=== PATIENT | female | born 1955 | race Caucasian/White ===

== ENCOUNTER 2018-01-01 12:53 | Inpatient (IN) | payer OTHER ==
[2018-01-01] MEDS ORDERED: Acetaminophen 325 MG Tab PO PRN (14:41)
--- NOTE | 2018-01-01 14:41 | PCM.HP ---
H&P History of Present Illness - General Date of Service: 01/01/18 Admit Problem/Dx: Ms. 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 She is also s/p adjuvant radiation therapy in [place] with her last treatment being 08/16/17. She is currently on adjuvant chemotherapy with Lomustine, Procarbazine and Vincristine which was started on 09/17/17. She admitted to [facility] 12/14/17 from the ER with failure to thrive, dehydration, nausea and vomiting. CXR on 12/14/[address] brain was negative for mass effect, hemorrhage. Prior surgical area noted. She had a feeding tube placed on 12/23/17. Patient was discharge today to [facility] to continue PT/OT for strengthening. At bedside evaluation she denies any compiant. No fever, chills, abdominal pain , neausea and vomting. She was able to eat a little today. Her overall goal is to get off tube feeding and get stronger. She has no pain to the GJ tube site. Source of Information: Patient History Limitations: Reports: No Limitations - History of Present Illness Onset of Symptoms: Reports: Gradual Duration of Symptoms: Reports: Week(s):, Chronic, Improving Improves with: Reports: None Worsens with: Reports: None Associated Symptoms: Reports: No Other Symptoms - Related Data Allergies/Adverse Reactions: Allergies Allergy/AdvReac Type Severity Reaction Status Date / Time No Known Allergies Allergy Verified 01/01/18 11:25 Home Medications: Home Meds Acetaminophen 650 mg PO Q6H PRN 01/01/18 [History] Latanoprost 1 drop EYEBOTH BEDTIME 01/01/18 [History] Ondansetron [Zofran Odt] 8 mg PO Q8H PRN 01/01/18 [History] Rosuvastatin [Crestor] 20 mg PO BEDTIME 01/01/18 [History] Past Medical History HEENT History: Reports: Glaucoma Cardiovascular History: Reports: Hypertension, Other (See Below) Other Cardiovascular History: Hyperlipidemia Gastrointestinal History: Reports: Other (See Below) Other Gastrointestinal History: gallbladder calculus without cholecystitis Genitourinary History: Reports: Urinary Incontinence Musculoskeletal History: Reports: Arthritis, Other (See Below) Other Musculoskeletal History: trigger thumb of right hand Neurological History: Reports: Other (See Below) Other Neuro History: Brain tumor Endocrine/Metabolic History: Reports: Diabetes, Type II Hematologic History: Reports: Blood Transfusion(s) Immunologic History: Reports: Immunosuppression Oncologic (Cancer) History: Reports: Brain - Past Surgical History Head Surgeries/Procedures: Reports: Other (See Below) HEENT Surgical History: Reports: Adenoidectomy, Tonsillectomy, Other (See Below) Other HEENT Surgeries/Procedures: wisdom teeth extraction Cardiovascular Surgical History: Reports: None GI Surgical History: Reports: Colonoscopy, Other (See Below) Other GI Surgeries/Procedures: G-tube placed 12/23/17 Female Surgical History: Reports: Tubal Ligation, Other (See Below) Other Female Surgeries/Procedures: left breast lumpectomy Endocrine Surgical History: Reports: None Neurological Surgical History: Reports: Other (See Below) Other Neurological Surgeries/Procedures: 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) Musculoskeletal Surgical History: Reports: None Oncologic Surgical History: Reports: Other (See Below) Other Oncologic Surgeries/Procedures: brain surgery to remove Oligodendroglioma( brain tumor) Social & Family History - Family History Family Medical History: Noncontributory - Tobacco Use Smoking Status *Q: Former Smoker Years of Tobacco use: 33 Used Tobacco, but Quit: Yes Month/Year Tobacco Last Used: 2000 - Caffeine Use Caffeine Use: Reports: Coffee, Soda, Tea - Recreational Drug Use Recreational Drug Use: No H&P Review of Systems - Review of Systems: Review Of Systems: See Below General: Reports: No Symptoms HEENT: Reports: No Symptoms Pulmonary: Reports: No Symptoms Cardiovascular: Reports: No Symptoms Gastrointestinal: Reports: No Symptoms Genitourinary: Reports: No Symptoms Musculoskeletal: Reports: No Symptoms Skin: Reports: No Symptoms Psychiatric: Reports: No Symptoms Neurological: Reports: No Symptoms Hematologic/Lymphatic: Reports: No Symptoms Immunologic: Reports: No Symptoms Exam - Exam Exam: See Below - Vital Signs Vital Signs: Last Vital Signs Temp 97.7 F 01/01/18 13:19 Pulse 103 H 01/01/18 13:19 Resp 20 01/01/18 13:19 BP 147/90 H 01/01/18 13:19 Pulse Ox 98 01/01/18 13:19 Weight: 124 lb - Exam Quality Assessment: DVT Prophylaxis General: Alert, Oriented, 4 HEENT: PERRLA, Hearing Intact, Mucosa Moist & [place], Nares Patent, Normal Nasal Septum, Posterior Pharynx Clear, Conjunctiva Clear, EOMI, EACs Clear, TMs Clear Neck: Supple, Trachea Midline, 2 Lungs: Clear to Auscultation, Normal Respiratory Effort Cardiovascular: Regular Rate, Regular Rhythm GI/Abdominal Exam: Normal Bowel Sounds, Soft, Non-Tender, No Organomegaly, No Distention, No Abnormal Bruit, No Mass, Pelvis Stable, Abnormal Bowel Sounds, Other (GJ tube noted. No sign of infection) (Female) Exam: Normal External Exam (GJ tube noted, no site of infection.), Normal Speculum Exam, Normal Bimanual Exam Rectal (Female) Exam: Normal Exam, Normal Rectal Tone Back Exam: Normal Inspection, Full Range of Motion, NT Extremities: Normal Inspection, Normal Range of Motion, Non-Tender, No Pedal Edema, Normal Capillary Refill Skin: Warm, Dry, Intact Neurological: Cranial Nerves Intact, Reflexes Equal Bilateral Neuro Extensive - Mental Status: Alert, Oriented x3, Normal Mood/Affect, Normal Cognition Neuro Extensive - Motor, Sensory, Reflexes: CN II-XII Intact, Normal Gait, Normal Reflexes Psychiatric: Alert, Normal Affect, Normal Mood - Problem List (1) Weakness generalized SNOMED Code(s): 29888036 ICD Code: R53.1 - WEAKNESS Status: Acute Current Visit: Yes (2) Adult failure to thrive SNOMED Code(s): 740295414 ICD Code: R62.7 - ADULT FAILURE TO THRIVE Status: Acute Current Visit: Yes (3) Nausea & vomiting SNOMED Code(s): 46610835 ICD Code: R11.2 - NAUSEA WITH VOMITING, UNSPECIFIED Status: Acute Current Visit: Yes Problem List Initiated/Reviewed/Updated: Yes Assessment/Plan Comment:: Adult failure to thrive -continue tube feeding Nausea/vomiting -zofran prn Anorexia/weight loss -tube feeding and encirgae oral feeding Depression -Continue Lexapro 10 mg PO daily Generalized weakness -PT/OT Code status DNI
[2018-01-01] MEDS ORDERED: Ondansetron 4 MG Tab.DIS PO PRN (14:50)
[2018-01-01] MEDS ORDERED: Loperamide 2 MG Cap PO PRN (14:52)
[2018-01-01] MEDS: Potassium Chloride 10% 20 MEQ/15 ML Soln 15 ML UD Cup PO SCH (17:36)
[2018-01-01] MEDS: Rosuvastatin 10 MG Tab PO SCH (20:59)
[2018-01-01] MEDS: Latanoprost 0.005% Ophth Soln 2.5 ML Bottle EYEBOTH SCH (21:00)
[2018-01-01] MEDS: Heparin Sodium 5,000 Units/ML Vial SUBCUT SCH (21:01)
[2018-01-02] MEDS: Potassium Chloride 10% 20 MEQ/15 ML Soln 15 ML UD Cup PO SCH ×2 (10:51→12:29)
[2018-01-02] MEDS: Heparin Sodium 5,000 Units/ML Vial SUBCUT SCH ×2 (10:51→20:57)
[2018-01-02] MEDS: Escitalopram 10 MG Tab PO SCH (10:51)
[2018-01-02] MEDS: Potassium Chloride 10 MEQ Tab.ER PO SCH (17:49)
[2018-01-02] MEDS: Rosuvastatin 10 MG Tab PO SCH (20:57)
[2018-01-02] MEDS: Latanoprost 0.005% Ophth Soln 2.5 ML Bottle EYEBOTH SCH (21:00)
[2018-01-03 06:33] LABS: ANION GAP 9.7; CHLORIDE,CL 103 mmol/L (101-111); SODIUM,NA 135 mmol/L (135-145)
[2018-01-03] MEDS: Potassium Chloride 10 MEQ Tab.ER PO SCH ×2 (09:55→12:52)
[2018-01-03] MEDS: Heparin Sodium 5,000 Units/ML Vial SUBCUT SCH (09:55)
[2018-01-03] MEDS: Escitalopram 10 MG Tab PO SCH (09:56)
--- NOTE | 2018-01-03 09:57 | PCM.DCSUM1 ---
Discharge Summary - Hospital Course Free Text/Narrative:: Ms. 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 She is also s/p adjuvant radiation therapy in [place] with her last treatment being 08/16/17. She is currently on adjuvant chemotherapy with Lomustine, Procarbazine and Vincristine which was started on 09/17/17. She admitted to [facility] 12/14/17 from the ER with failure to thrive, dehydration, nausea and vomiting. CXR on 12/14/[address] brain was negative for mass effect, hemorrhage. Prior surgical area noted. She had a feeding tube placed on 12/23/17. Patient was discharge on 01/01 to [facility] to continue PT/OT for strengthening. At bedside evaluation she denies any compiant. No fever, chills, abdominal pain , neausea and vomting. She was able to eat a little today but vomited more than half of she eat. Her Gj tube clogged on 01/02/17 and was seen by surgery yesterday but at [place] has no replacement material available, not transferred yesterday with thought that she will able to eat and will not need GJ tube replacement but she did not anything last night and this AM she eat her part of the breakfast but vomited more that 50% of what she eat. [facility]. I talk to On-Call and Dr. Mccord has accepted her. She will be a direct admit and her will take her to [facility] - Discharge Data Discharge Date: 01/03/18 Discharge Disposition: Home, Self-Care 01 Condition: Good - Patient Summary/Data Consults: Consultations 01/01/18 14:48 OT Evaluation and Treatment [CONS] Routine PT Evaluation and Treatment [CONS] Routine - Patient Instructions Diet: NPO Driving: Do Not Drive - Discharge Plan *PRESCRIPTION DRUG MONITORING PROGRAM REVIEWED*: Not Applicable *COPY OF PRESCRIPTION DRUG MONITORING REPORT IN PATIENT REYNA: Not Applicable Home Medications: Home Meds Acetaminophen 650 mg PO Q6H PRN 01/01/18 [History] Latanoprost 1 drop EYEBOTH BEDTIME 01/01/18 [History] Ondansetron [Zofran Odt] 8 mg PO Q8H PRN 01/01/18 [History] Rosuvastatin [Crestor] 20 mg PO BEDTIME 01/01/18 [History] - Discharge Summary/Plan Comment DC Time >30 min.: Yes Discharge Summary/Plan Comment: Ms. 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 She is also s/p adjuvant radiation therapy in [place] with her last treatment being 08/16/17. She is currently on adjuvant chemotherapy with Lomustine, Procarbazine and Vincristine which was started on 09/17/17. [facility] ER with failure to thrive, dehydration, nausea and vomiting. CXR on 12/14/[address] brain was negative for mass effect, hemorrhage. Prior surgical area noted. She had a feeding tube placed on 12/23/17. Patient was discharge on 01/01 to [facility] to continue PT/OT for strengthening. At bedside evaluation she denies any compiant. No fever, chills, abdominal pain , neausea and vomting. She was able to eat a little today but vomited more than half of she eat. Her Gj tube clogged on 01/02/17 and was seen by surgery yesterday but at [place] has no replacement material available, not transferred yesterday with thought that she will able to eat and will not need GJ tube replacement but she did not anything last night and this AM she eat her part of the breakfast but vomited more that 50% of what she eat. [facility]. I talk to On-Call and Dr. Mccord has accepted her. She will be a direct admit and her will take her to [facility] Impression and Plan: Adult failure to thrive -Will need to continue tube feeding, GHJ tube is clogged and can not replace at [place], she will be transferred to [facility] for replacemnt of GJ tube Nausea/vomiting -Continue zofran prn Anorexia/weight loss -Continue tube feeding and advance oral feeding as tolerated Depression -Continue Lexapro 10 mg PO daily Generalized weakness -PT/OT Code status: DNR/DNI - General Info Date of Service: 01/03/18 Admission Dx/Problem (Free Text: Pt was admitted as Tranfer to swing bed for PT/OT and strengthning Subjective Update: pt was seen in room, talking but can not remember , provides most of the information, very pleasant lady, Not in distress, No nausea or vomiting, has no fever or Chill Functional Status: Reports: Pain Controlled, Tolerating Diet (on tube feeding, has minimal oral intake), Ambulating, Urinating - Review of Systems General: Reports: Weakness, Appetite (on tube feeding, oral intake is limited). Denies: Fever, Chills HEENT: Denies: Headaches, Sinus Congestion, Sore Throat, Visual Changes Pulmonary: Denies: Shortness of Breath, Pleuritic Chest Pain, Cough, Sputum, Wheezing Cardiovascular: Denies: Chest Pain, Palpitations, Dyspnea on Exertion, Lightheadedness Gastrointestinal: Reports: Vomiting. Denies: Abdominal Pain, Diarrhea, Nausea Genitourinary: Denies: Dysuria, Burning, Urgency, Flank Pain Musculoskeletal: Denies: Neck Pain, Shoulder Pain, Joint Swelling Skin: Denies: Jaundice, Bruising, Pruritis, Rash Neurological: Denies: Confusion, Paresthesia, Tingling Psychiatric: Denies: Confusion, Anxiety - Patient Data Vitals - Most Recent: Last Vital Signs Temp 36.6 C 01/03/18 08:00 Pulse 93 01/03/18 08:00 Resp 18 01/03/18 08:00 BP 136/80 01/03/18 08:00 Pulse Ox 95 01/03/18 08:00 Weight - Most Recent: 56.245 kg I&O - Last 24 hours: Intake & Output 01/02/18 01/03/18 01/03/18 22:59 06:59 14:59 Intake Total 525 50 Output Total 575 600 Balance -50 -550 Lab Results - Last 24 hrs: Laboratory Results - last 24 hr 01/02/18 01/03/18 01/03/18 Range/Units 17:02 05:55 05:55 WBC 2.9 L (5.0-10.0) 10^3/uL RBC 3.28 L (4.2-5.4) 10^6/uL Hgb 9.6 L (12.0-16.0) g/dL Hct 29.5 L (37.0-47.0) % MCV 89.9 (80-100) fL MCH 29.3 (27.0-34.0) pg MCHC 32.5 L (33.0-35.0) g/dL Plt Count 170 (150-450) 10^3/uL Neut % (Auto) 60.1 (42.2-75.2) % Lymph % (Auto) 14.2 L (20.5-50.1) % Sanders % (Auto) 24.7 H (2-8) % Eos % (Auto) 0.3 L (1.0-3.0) % Baso % (Auto) 0.7 (0.0-1.0) % Add Manual Diff Yes Neutrophils % (Manual) 59 (42-75) % Band Neutrophils % 8 % Lymphocytes % (Manual) 12 L (20-50) % Monocytes % (Manual) 20 H (2-8) % Basophils % (Manual) 1 Nucleated RBCs 3 /100WBC Toxic Granulation 1+ slight Poikilocytosis 1+ slight Sodium 135 (135-145) mmol/L Potassium 3.7 (3.6-5.0) mmol/L Chloride 103 (101-111) mmol/L Carbon Dioxide 26.0 (21.0-31.0) mmol/L Anion Gap 9.7 BUN 13 (7-18) mg/dL Creatinine 0.5 L (0.6-1.3) mg/dL Est Cr Clr Drug Dosing 98.16 mL/min Estimated GFR (MDRD) > 60 Glucose 100 (74-105) mg/dL POC Glucose 101 (70-105) mg/dl Calcium 9.1 (8.4-10.2) mg/dl 01/03/18 Range/Units 07:54 WBC (5.0-10.0) 10^3/uL RBC (4.2-5.4) 10^6/uL Hgb (12.0-16.0) g/dL Hct (37.0-47.0) % MCV (80-100) fL MCH (27.0-34.0) pg MCHC (33.0-35.0) g/dL Plt Count (150-450) 10^3/uL Neut % (Auto) (42.2-75.2) % Lymph % (Auto) (20.5-50.1) % Sanders % (Auto) (2-8) % Eos % (Auto) (1.0-3.0) % Baso % (Auto) (0.0-1.0) % Add Manual Diff Neutrophils % (Manual) (42-75) % Band Neutrophils % % Lymphocytes % (Manual) (20-50) % Monocytes % (Manual) (2-8) % Basophils % (Manual) Nucleated RBCs /100WBC Toxic Granulation Poikilocytosis Sodium (135-145) mmol/L Potassium (3.6-5.0) mmol/L Chloride (101-111) mmol/L Carbon Dioxide (21.0-31.0) mmol/L Anion Gap BUN (7-18) mg/dL Creatinine (0.6-1.3) mg/dL Est Cr Clr Drug Dosing mL/min Estimated GFR (MDRD) Glucose (74-105) mg/dL POC Glucose 100 (70-105) mg/dl Calcium (8.4-10.2) mg/dl Med Orders - Current: Current Medications Acetaminophen (Tylenol) 650 mg PO Q4H PRN PRN Reason: Pain (mild 1-3 )/fever Escitalopram Oxalate (Lexapro) 10 mg PO DAILY [facility] Last Admin: 01/02/18 10:51 Dose: 10 mg Heparin Sodium (Porcine) (Heparin Sodium) 5,000 units SUBCUT Q12HR [facility] Last Admin: 01/02/18 20:57 Dose: 5,000 units Latanoprost (Xalatan 0.005% Ophth Soln) 0 ml EYEBOTH BEDTIME [facility] Last Admin: 01/02/18 21:00 Dose: 1 drop Loperamide HCl (Imodium) 4 mg PO Q6H PRN PRN Reason: Diarrhea Ondansetron HCl (Zofran Odt) 8 mg PO Q8H PRN PRN Reason: Nausea Potassium Chloride (Klor-Con 10) 30 meq PO TIDMEALS [facility] Last Admin: 01/02/18 17:49 Dose: 30 meq Rosuvastatin Calcium (Crestor) 20 mg PO BEDTIME [facility] Last Admin: 01/02/18 20:57 Dose: 20 mg Discontinued Medications Potassium Chloride (Potassium Chloride Solution) 30 meq PO TIDMEALS [facility] Last Admin: 01/02/18 12:29 Dose: Not Given - Exam Quality Assessment: Reports: DVT Prophylaxis. Denies: Supplemental Oxygen, Urine Catheter General: Reports: Alert, Oriented, Cooperative, No Acute Distress HEENT: Reports: Pupils Equal, Mucous Membr. Moist/[place] Neck: Reports: Supple, No JVD, No Thyromegaly Lungs: Reports: Clear to Auscultation, Normal Respiratory Effort. Denies: Crackles, Wheezing Cardiovascular: Reports: Regular Rate, Regular Rhythm, Murmurs GI/Abdominal Exam: Normal Bowel Sounds, Soft, Non-Tender. No: Guarding, Rigid, Rebound, Tender (Female) Exam: Deferred Rectal (Female) Exam: Deferred Back Exam: Reports: Normal Inspection, Full Range of Motion Extremities: Normal Inspection, No Pedal Edema Skin: Reports: Warm, Dry, Intact Neurological: Reports: No New Focal Deficit Psy/Mental Status: Reports: Alert, Normal Affect, Normal Mood
== END 2018-01-03 12:00 | DRG 948 ==
LOC: UNDOADMIN 12:56 → DL.MS 12:56
PROVIDERS: ADMIT Student in an Organized Health Care Education/Training Program; ATTEND Student in an Organized Health Care Education/Training Program
DX: R53.1 Weakness (principal); C71.9 Malignant neoplasm of brain, unspecified; K94.23 Gastrostomy malfunction; Y83.8 Other surgical procedures as the cause of abnormal reaction of the patient, or of later complication, without mention of misadventure at the time of the procedure; Y92.230 Patient room in hospital as the place of occurrence of the external cause; R62.7 Adult failure to thrive; E11.9 Type 2 diabetes mellitus without complications; E78.5 Hyperlipidemia, unspecified; I10 Essential (primary) hypertension; R11.2 Nausea with vomiting, unspecified; H40.9 Unspecified glaucoma; M19.90 Unspecified osteoarthritis, unspecified site; R32 Unspecified urinary incontinence; F32.9 Major depressive disorder, single episode, unspecified; Z98.890 Other specified postprocedural states; Z92.21 Personal history of antineoplastic chemotherapy; Z92.3 Personal history of irradiation; Z79.899 Other long term (current) drug therapy; Z87.891 Personal history of nicotine dependence
CPT/HCPCS: 36415; 80048; 82962; 85025; 97162-GP; 97165-GO; A9270-GY; J1644

== ENCOUNTER 2018-01-05 13:03 | Inpatient (IN) | payer OTHER ==
[2018-01-05] MEDS ORDERED: Acetaminophen 325 MG Tab PO PRN ×2 (15:37→15:42)
--- NOTE | 2018-01-05 15:55 | PCM.HP ---
H&P History of Present Illness - General Date of Service: 01/05/18 Admit Problem/Dx: Admission Diagnosis/Problem Admission Diagnosis/Problem Weakness Source of Information: Patient History Limitations: Reports: No Limitations - History of Present Illness Initial Comments - Free Text/Narative: Jorge preciado 62 y.o.femalewith PMH of HTN and DM2 not on medications, hyperlipidemia, oligodendroglioma s/p resection and XRT, s/p adjuvant radiation therapy in [place] with her last treatment on 08/16/17. She is currently on adjuvant chemotherapy with Lomustine, Procarbazine and Vincristine which was started on 09/17/17. Last session about 6weeks ago. She was recently discharged to our swing bed after prolonged hospitalization for FTT, GJ tube placement, weakness, pancytopenia. Her GJ tube was not functioning at swing bed so was transferred back to [facility]. The tube was flushed, then aspirated - pill fragments were found and now function well. She was discharged back to our swing bed to continue PT/OT. At the time of this evaluation patient reports no problem. She no abdominal pain , nausea, vomiting. Onset of Symptoms: Reports: Gradual Duration of Symptoms: Reports: Week(s): Location: Reports: Abdomen, Generalized Improves with: Reports: None Worsens with: Reports: None Associated Symptoms: Reports: No Other Symptoms - Related Data Allergies/Adverse Reactions: Allergies Allergy/AdvReac Type Severity Reaction Status Date / Time No Known Allergies Allergy Verified 01/05/18 14:54 Home Medications: Home Meds Acetaminophen 650 mg PO Q6H PRN 01/01/18 [History] Latanoprost 1 drop EYEBOTH BEDTIME 01/01/18 [History] Ondansetron [Zofran Odt] 8 mg PO Q8H PRN 01/01/18 [History] Rosuvastatin [Crestor] 20 mg PO BEDTIME 01/01/18 [History] Escitalopram [Lexapro] 10 mg PO DAILY 01/05/18 [History] Potassium Chloride [Potassium Chloride Solution] 30 ml GTUBE TID 01/05/18 [ History] Past Medical History HEENT History: Reports: Glaucoma Cardiovascular History: Reports: Hypertension, Other (See Below) Other Cardiovascular History: Hyperlipidemia Gastrointestinal History: Reports: Other (See Below) Other Gastrointestinal History: gallbladder calculus without cholecystitis Genitourinary History: Reports: Urinary Incontinence Musculoskeletal History: Reports: Arthritis, Other (See Below) Other Musculoskeletal History: trigger thumb of right hand Neurological History: Reports: Other (See Below) Other Neuro History: Brain tumor Endocrine/Metabolic History: Reports: Diabetes, Type II Hematologic History: Reports: Blood Transfusion(s) Immunologic History: Reports: Immunosuppression Oncologic (Cancer) History: Reports: Brain - Past Surgical History Head Surgeries/Procedures: Reports: Other (See Below) HEENT Surgical History: Reports: Adenoidectomy, Tonsillectomy, Other (See Below) Other HEENT Surgeries/Procedures: wisdom teeth extraction Cardiovascular Surgical History: Reports: None GI Surgical History: Reports: Colonoscopy, Other (See Below) Other GI Surgeries/Procedures: G-tube placed 12/23/17 Female Surgical History: Reports: Tubal Ligation, Other (See Below) Other Female Surgeries/Procedures: left breast lumpectomy Endocrine Surgical History: Reports: None Neurological Surgical History: Reports: Other (See Below) Other Neurological Surgeries/Procedures: 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) Musculoskeletal Surgical History: Reports: None Oncologic Surgical History: Reports: Other (See Below) Other Oncologic Surgeries/Procedures: brain surgery to remove Oligodendroglioma( brain tumor) Social & Family History - Family History Family Medical History: Noncontributory - Tobacco Use Smoking Status *Q: Former Smoker Years of Tobacco use: 33 Packs/Tins Daily: 2 Used Tobacco, but Quit: Yes Month/Year Tobacco Last Used: june - Caffeine Use Caffeine Use: Reports: Coffee, Soda, Tea - Recreational Drug Use Recreational Drug Use: No H&P Review of Systems - Review of Systems: Review Of Systems: See Below General: Reports: No Symptoms, Weakness, Decreased Appetite, Weight Loss HEENT: Reports: No Symptoms Pulmonary: Reports: No Symptoms Cardiovascular: Reports: No Symptoms Gastrointestinal: Reports: Abdominal Pain, Anorexia, Nausea, Vomiting Genitourinary: Reports: No Symptoms Musculoskeletal: Reports: No Symptoms Skin: Reports: No Symptoms Psychiatric: Reports: No Symptoms Neurological: Reports: No Symptoms Hematologic/Lymphatic: Reports: No Symptoms Immunologic: Reports: No Symptoms Exam - Exam Exam: See Below - Vital Signs Vital Signs: Last Vital Signs Temp 97.4 F 01/05/18 13:20 Pulse 96 01/05/18 13:20 Resp 20 01/05/18 13:20 BP 149/89 H 01/05/18 13:20 Pulse Ox 98 01/05/18 13:20 Weight: 121 lb 9.6 oz - Exam Quality Assessment: DVT Prophylaxis General: Alert, Oriented, 4 HEENT: PERRLA, Hearing Intact, Mucosa Moist & [place], Nares Patent, Normal Nasal Septum, Posterior Pharynx Clear, Conjunctiva Clear, EOMI, EACs Clear, TMs Clear Neck: Supple, Trachea Midline, 2 Lungs: Clear to Auscultation, Normal Respiratory Effort Cardiovascular: Regular Rate, Regular Rhythm GI/Abdominal Exam: Normal Bowel Sounds, Soft, Non-Tender, No Organomegaly, No Distention, No Abnormal Bruit, No Mass, Pelvis Stable, Other (GJ tube in place) (Female) Exam: Normal External Exam, Normal Speculum Exam, Normal Bimanual Exam Rectal (Female) Exam: Normal Exam, Normal Rectal Tone Back Exam: Normal Inspection, Full Range of Motion, NT Extremities: Normal Inspection, Normal Range of Motion, Non-Tender, No Pedal Edema, Normal Capillary Refill Skin: Warm, Dry, Intact Neurological: Cranial Nerves Intact, Reflexes Equal Bilateral Neuro Extensive - Mental Status: Alert, Oriented x3, Normal Mood/Affect, Normal Cognition Neuro Extensive - Motor, Sensory, Reflexes: CN II-XII Intact, Normal Gait, Normal Reflexes Psychiatric: Alert, Normal Affect, Normal Mood - Problem List (1) Adult failure to thrive SNOMED Code(s): 629654902 ICD Code: R62.7 - ADULT FAILURE TO THRIVE Status: Acute Current Visit: No (2) Nausea & vomiting SNOMED Code(s): 63937581 ICD Code: R11.2 - NAUSEA WITH VOMITING, UNSPECIFIED Status: Acute Current Visit: No (3) Weakness generalized SNOMED Code(s): 92519015 ICD Code: R53.1 - WEAKNESS Status: Acute Current Visit: No Problem List Initiated/Reviewed/Updated: Yes Orders Last 24hrs: Active Orders 24 hr Category Date Time Status Patient Status [ADT] Routine ADT 01/05/18 15:37 Ordered Antiembolic Devices [RC] .Routine Care 01/05/18 15:39 Ordered Intake and Output [RC] QSHIFT Care 01/05/18 15:39 Ordered Up With Assistance [RC] ASDIRECTED Care 01/05/18 15:37 Ordered Vital Signs [RC] Q4H Care 01/05/18 15:37 Ordered OT Evaluation and Treatment [CONS] Routine Cons 01/05/18 15:48 Ordered PT Evaluation and Treatment [CONS] Routine Cons 01/05/18 15:47 Ordered Regular Diet [DIET] Diet 01/05/18 Dinner Active Tube Feeding Adult Diet [DIET] Diet 01/05/18 Dinner Ordered Acetaminophen [Tylenol] Med 01/05/18 15:37 Ordered 650 mg PO Q4H PRN Acetaminophen [Tylenol] Med 01/05/18 15:42 Ordered 650 mg PO Q6H PRN Escitalopram [Lexapro] Med 01/06/18 09:00 Ordered 10 mg PO DAILY Heparin Sodium Med 01/05/18 15:45 Ordered 5,000 units SUBCUT Q12H Latanoprost [Xalatan 0.005% Ophth Soln] Med 01/05/18 21:00 Ordered 1 drop EYEBOTH BEDTIME Ondansetron Med 01/05/18 15:42 Ordered 8 mg PO Q8H PRN Potassium Chloride [Potassium Chloride Solution] Med 01/05/18 21:00 Ordered 40 meq GTUBE TID Rosuvastatin [Crestor] Med 01/05/18 21:00 Ordered 20 mg PO BEDTIME DVT/VTE Prophylaxis Reflex [OM.PC] Routine Oth 01/05/18 15:37 Ordered Medication Orders Acetaminophen (Tylenol) 650 mg PO Q4H PRN PRN Reason: Pain (mild 1-3 )/fever Acetaminophen (Tylenol) 650 mg PO Q6H PRN PRN Reason: Pain (mild 1-3) Escitalopram Oxalate (Lexapro) 10 mg PO DAILY [facility] Heparin Sodium (Porcine) (Heparin Sodium) 5,000 units SUBCUT Q12H [facility] Latanoprost (Xalatan 0.005% Ophth Soln) ml EYEBOTH BEDTIME [facility] Non-Formulary Medication (Ondansetron) 8 mg PO Q8H PRN PRN Reason: Nausea Potassium Chloride (Potassium Chloride Solution) 40 meq GTUBE TID [facility] Rosuvastatin Calcium (Crestor) 20 mg PO BEDTIME [facility] Assessment/Plan Comment:: Adult failure to thrive, poor appetite, generalized weakness -Patient encouraged to eat as tolerated, she is eating a little better now -nutrition, supplements -PT/OT Nausea/vomiting -Zofran and reglan as needed -improved G-J tube -strictly for tube feeding -do not use tube for pills, only tube feeds and liquid meds - pt is able to take her pills po Acute on chronic anemia -stable Wt loss and severe malnutrtion -50 Ib wt loss in past 7mo -continue marinol, ensure -s/p GJ tube placement 12/23 - has beentolerating jejunal tube feeds Oligodendroglioma -follows with Dr Price HLD -cont statin Hypokalemia -cont 40meq tid HTN -BP at goal -Continue current care -MonitoredBP closely PROPHYLAXIS: heparin DIET: general + tube feed CODE: DNR
[2018-01-05] MEDS: Rosuvastatin 10 MG Tab PO SCH (20:55)
[2018-01-05] MEDS: Potassium Chloride 10% 20 MEQ/15 ML Soln 15 ML UD Cup GTUBE SCH (20:56)
[2018-01-05] MEDS: Heparin Sodium 5,000 Units/ML Vial SUBCUT SCH (20:56)
[2018-01-05] MEDS: Latanoprost 0.005% Ophth Soln 2.5 ML Bottle EYEBOTH SCH (21:04)
[2018-01-05] MEDS: Ondansetron 4 MG Tab.DIS PO PRN (22:25)
[2018-01-06] MEDS: Potassium Chloride 10% 20 MEQ/15 ML Soln 15 ML UD Cup GTUBE SCH ×3 (08:50→21:45)
[2018-01-06] MEDS: Escitalopram 10 MG Tab PO SCH (08:50)
[2018-01-06] MEDS: Heparin Sodium 5,000 Units/ML Vial SUBCUT SCH ×2 (08:51→21:33)
[2018-01-06] MEDS: Ondansetron 4 MG Tab.DIS PO PRN (19:33)
[2018-01-06] MEDS: Rosuvastatin 10 MG Tab PO SCH (21:32)
[2018-01-06] MEDS: Latanoprost 0.005% Ophth Soln 2.5 ML Bottle EYEBOTH SCH (21:35)
[2018-01-07] MEDS: Heparin Sodium 5,000 Units/ML Vial SUBCUT SCH ×2 (09:25→22:01)
[2018-01-07] MEDS: Potassium Chloride 10% 20 MEQ/15 ML Soln 15 ML UD Cup GTUBE SCH ×2 (09:26→15:25)
[2018-01-07] MEDS: Escitalopram 10 MG Tab PO SCH (09:26)
[2018-01-07] MEDS: Ondansetron 4 MG Tab.DIS PO SCH ×2 (11:20→17:37)
[2018-01-07] MEDS ORDERED: Ondansetron 4 MG/2 ML SDV IV SCH (14:00)
[2018-01-07] MEDS ORDERED: [UNRECOGNIZED DRUG - REMARK] GTUBE ONE (16:30)
[2018-01-07] MEDS ORDERED: Potassium Chloride 10% 20 MEQ/15 ML Soln 15 ML UD Cup PO SCH (21:00)
[2018-01-07] MEDS: Rosuvastatin 10 MG Tab PO SCH (22:01)
[2018-01-07] MEDS: Potassium Chloride 10 MEQ Tab.ER PO SCH (22:03)
[2018-01-07] MEDS: Latanoprost 0.005% Ophth Soln 2.5 ML Bottle EYEBOTH SCH (22:03)
[2018-01-08] MEDS: Ondansetron 4 MG Tab.DIS PO SCH ×3 (09:29→16:58)
[2018-01-08] MEDS: Potassium Chloride 10 MEQ Tab.ER PO SCH ×3 (09:29→20:18)
[2018-01-08] MEDS: Escitalopram 10 MG Tab PO SCH (09:30)
[2018-01-08] MEDS: Heparin Sodium 5,000 Units/ML Vial SUBCUT SCH ×2 (09:30→20:15)
[2018-01-08] MEDS: Latanoprost 0.005% Ophth Soln 2.5 ML Bottle EYEBOTH SCH (20:17)
[2018-01-08] MEDS: Rosuvastatin 10 MG Tab PO SCH (20:19)
[2018-01-09 06:57] LABS: ANION GAP 13.1; CHLORIDE,CL 104 mmol/L (101-111); SODIUM,NA 136 mmol/L (135-145)
[2018-01-09] MEDS: Ondansetron 4 MG Tab.DIS PO SCH ×3 (09:30→18:14)
[2018-01-09] MEDS: Potassium Chloride 10 MEQ Tab.ER PO SCH ×3 (09:30→21:30)
[2018-01-09] MEDS: Escitalopram 10 MG Tab PO SCH (09:30)
[2018-01-09] MEDS: Heparin Sodium 5,000 Units/ML Vial SUBCUT SCH ×2 (09:30→21:30)
--- NOTE | 2018-01-09 11:13 | PCM.PN ---
- General Info Date of Service: 01/09/18 Admission Dx/Problem (Free Text): Weakness, Subjective Update: Had repeated problem with the feeding tube clogging. On 08 January the feeding to was unclogged by IR in [place]. Tube feeding was restarted at 100 mL per hour. The patient reported abdominal pain and the tube feeding was decreased to 50 mL/h. She tolerated that well - Patient Data Vitals - Most Recent: Last Vital Signs Temp 36.3 C 01/09/18 07:19 Pulse 108 H 01/09/18 07:19 Resp 20 01/09/18 07:19 BP 112/66 01/09/18 07:19 Pulse Ox 94 L 01/09/18 07:19 Weight - Most Recent: 54.975 kg I&O - Last 24 Hours: Intake & Output 01/08/18 01/09/18 01/09/18 22:59 06:59 14:59 Intake Total 453 685 383 Output Total 300 200 Balance 153 485 383 Lab Results Last 24 Hours: Laboratory Results - last 24 hr 01/09/18 01/09/18 01/09/18 Range/Units 06:20 06:20 07:38 WBC 7.0 (5.0-10.0) 10^3/uL RBC 3.45 L (4.2-5.4) 10^6/uL Hgb 10.2 L (12.0-16.0) g/dL Hct 31.9 L (37.0-47.0) % MCV 92.5 (80-100) fL MCH 29.6 (27.0-34.0) pg MCHC 32.0 L (33.0-35.0) g/dL Plt Count 259 D (150-450) 10^3/uL Neut % (Auto) 78.7 H (42.2-75.2) % Lymph % (Auto) 6.2 L (20.5-50.1) % [place] % (Auto) 14.5 H (2-8) % Eos % (Auto) 0.3 L (1.0-3.0) % Baso % (Auto) 0.3 (0.0-1.0) % Sodium 136 (135-145) mmol/L Potassium 4.1 (3.6-5.0) mmol/L Chloride 104 (101-111) mmol/L Carbon Dioxide 23.0 (21.0-31.0) mmol/L Anion Gap 13.1 BUN 18 (7-18) mg/dL Creatinine 0.5 L (0.6-1.3) mg/dL Est Cr Clr Drug Dosing 98.65 mL/min Estimated GFR (MDRD) > 60 Glucose 177 H (74-105) mg/dL POC Glucose 174 H (70-105) mg/dl Calcium 8.9 (8.4-10.2) mg/dl Med Orders - Current: Current Medications Acetaminophen (Tylenol) 650 mg PO Q6H PRN PRN Reason: Pain (mild 1-3) Escitalopram Oxalate (Lexapro) 10 mg PO DAILY [facility] Last Admin: 01/09/18 09:30 Dose: 10 mg Heparin Sodium (Porcine) (Heparin Sodium) 5,000 units SUBCUT Q12HR [facility] Last Admin: 01/09/18 09:30 Dose: 5,000 units Latanoprost (Xalatan 0.005% Ophth Soln) 0 ml EYEBOTH BEDTIME [facility] Last Admin: 01/08/18 20:17 Dose: 1 drop Ondansetron HCl (Zofran Odt) 4 mg PO TIDAC [facility] Last Admin: 01/09/18 09:30 Dose: 4 mg Potassium Chloride (Klor-Con 10) 40 meq PO TID [facility] Last Admin: 01/09/18 09:30 Dose: 40 meq Rosuvastatin Calcium (Crestor) 20 mg PO BEDTIME [facility] Last Admin: 01/08/18 20:19 Dose: 20 mg Discontinued Medications Acetaminophen (Tylenol) 650 mg PO Q4H PRN PRN Reason: Pain (mild 1-3 )/fever Creon And Sodium Bicarb Non-Form Med 1 each GTUBE ONETIME ONE Stop: 01/07/18 16:31 Last Admin: 01/07/18 16:45 Dose: 1 each Ondansetron HCl (Zofran Odt) 8 mg PO Q8H PRN PRN Reason: Nausea Last Admin: 01/06/18 19:33 Dose: 8 mg Ondansetron HCl (Zofran) 4 mg IV Q8HR [facility] Potassium Chloride (Potassium Chloride Solution) 40 meq GTUBE TID [facility] Last Admin: 01/07/18 15:25 Dose: 40 meq Potassium Chloride (Potassium Chloride Solution) 40 meq PO TID [facility] Last Admin: 01/08/18 01:46 Dose: Not Given - Exam General: Alert, Oriented Neck: Supple Lungs: Clear to Auscultation, Normal Respiratory Effort Cardiovascular: Regular Rate, Regular Rhythm GI/Abdominal Exam: Other (Feeding tube) Extremities: No Pedal Edema - Problem List Review Problem List Initiated/Reviewed/Updated: Yes - My Orders Last 24 Hours: My Active Orders 01/08/18 20:12 Enteral Feedings [RC] Click to Edit - Plan Plan:: Jorge preciado 62 y.o.femalewith PMH of HTN and DM2 not on medications, hyperlipidemia, oligodendroglioma s/p resection and XRT, s/p adjuvant radiation therapy in [place] with her last treatment on 08/16/17. She is currently on adjuvant chemotherapy with Lomustine, Procarbazine and Vincristine which was started on 09/17/17. Last session about 6weeks ago. She was recently discharged to our swing bed after prolonged hospitalization for FTT, GJ tube placement, weakness, pancytopenia. Her GJ tube was not functioning at swing bed so was transferred back to [facility]. The tube was flushed, then aspirated - pill fragments were found and now function well. She was discharged back to our swing bed to continue PT/OT. Adult failure to thrive, poor appetite, generalized weakness -Patient encouraged to eat as tolerated, she is eating a little better now We will try to alternate days between tube feeding and oral food intake -nutrition, supplements -PT/OT Nausea/vomiting -Zofran and reglan as needed -improved G-J tube -strictly for tube feeding -do not use tube for pills, only tube feeds and liquid meds - pt is able to take her pills po Flash with fresh water frequently Acute on chronic anemia -stable Wt loss and severe malnutrtion -50 Ib wt loss in past 7mo -s/p GJ tube placement 12/23 Oligodendroglioma -follows with Dr Price HLD -cont statin Hypokalemia -cont 40meq tid HTN -BP at goal -Continue current care -MonitoredBP closely PROPHYLAXIS: heparin DIET: general + tube feed CODE: DNR
[2018-01-09] MEDS: Rosuvastatin 10 MG Tab PO SCH (21:29)
[2018-01-09] MEDS: Latanoprost 0.005% Ophth Soln 2.5 ML Bottle EYEBOTH SCH (21:31)
[2018-01-10] MEDS: Potassium Chloride 10 MEQ Tab.ER PO SCH ×3 (08:23→20:33)
[2018-01-10] MEDS: Ondansetron 4 MG Tab.DIS PO SCH ×3 (08:24→17:27)
[2018-01-10] MEDS: Escitalopram 10 MG Tab PO SCH (08:24)
[2018-01-10] MEDS: Heparin Sodium 5,000 Units/ML Vial SUBCUT SCH ×2 (08:24→20:40)
[2018-01-10] MEDS: Rosuvastatin 10 MG Tab PO SCH (20:33)
[2018-01-10] MEDS: Latanoprost 0.005% Ophth Soln 2.5 ML Bottle EYEBOTH SCH (20:34)
[2018-01-11] MEDS: Ondansetron 4 MG Tab.DIS PO SCH ×3 (07:56→17:39)
[2018-01-11] MEDS: Escitalopram 10 MG Tab PO SCH (08:00)
[2018-01-11] MEDS: Potassium Chloride 10 MEQ Tab.ER PO SCH ×3 (08:00→22:10)
[2018-01-11] MEDS: Heparin Sodium 5,000 Units/ML Vial SUBCUT SCH ×2 (08:00→22:25)
[2018-01-11] MEDS: Latanoprost 0.005% Ophth Soln 2.5 ML Bottle EYEBOTH SCH (22:10)
[2018-01-11] MEDS: Rosuvastatin 10 MG Tab PO SCH (22:10)
[2018-01-12 07:13] LABS: ANION GAP 13.4; CHLORIDE,CL 101 mmol/L (101-111); SODIUM,NA 135 mmol/L (135-145)
[2018-01-12] MEDS: Ondansetron 4 MG Tab.DIS PO SCH ×3 (08:13→17:13)
[2018-01-12] MEDS: Escitalopram 10 MG Tab PO SCH (08:14)
[2018-01-12] MEDS: Potassium Chloride 10 MEQ Tab.ER PO SCH ×3 (08:14→20:03)
[2018-01-12] MEDS: Heparin Sodium 5,000 Units/ML Vial SUBCUT SCH ×2 (08:16→20:02)
[2018-01-12] MEDS: Metoclopramide Oral Soln 10 MG/10 ML UD Cup PO SCH (20:01)
[2018-01-12] MEDS: Rosuvastatin 10 MG Tab PO SCH (20:03)
[2018-01-12] MEDS: Latanoprost 0.005% Ophth Soln 2.5 ML Bottle EYEBOTH SCH (20:05)
[2018-01-13] MEDS: Heparin Sodium 5,000 Units/ML Vial SUBCUT SCH ×2 (08:59→20:32)
[2018-01-13] MEDS: Ondansetron 4 MG Tab.DIS PO SCH ×3 (08:59→17:01)
[2018-01-13] MEDS: Potassium Chloride 10 MEQ Tab.ER PO SCH (09:00)
[2018-01-13] MEDS: Escitalopram 10 MG Tab PO SCH (09:01)
--- NOTE | 2018-01-13 12:28 | PCM.PN ---
- General Info Date of Service: 01/13/18 Admission Dx/Problem (Free Text): Weakness, Subjective Update: Had repeated problem with the feeding tube clogging. Now it appears to be functioning okay. We'll modified the tube feeding to only every other nights. she symptoms be eating better during the days when she was not getting to proceeding. She actually had pretty good breakfast today. She denies abdominal pain, no chest pain, no shortness of breath. - Review of Systems General: Reports: Weakness. Denies: Fever Pulmonary: Denies: Shortness of Breath Cardiovascular: Denies: Chest Pain Gastrointestinal: Denies: Abdominal Pain Neurological: Denies: Confusion - Patient Data Vitals - Most Recent: Last Vital Signs Temp 36.2 C 01/13/18 07:43 Pulse 98 01/13/18 07:43 Resp 20 01/13/18 07:43 BP 113/71 01/13/18 07:43 Pulse Ox 96 01/13/18 07:43 Weight - Most Recent: 54.522 kg I&O - Last 24 Hours: Intake & Output 01/12/18 01/13/18 01/13/18 22:59 06:59 14:59 Intake Total 60 150 125 Balance 60 150 125 Lab Results Last 24 Hours: Laboratory Results - last 24 hr 01/13/18 Range/Units 07:49 POC Glucose 100 (70-105) mg/dl Med Orders - Current: Current Medications Acetaminophen (Tylenol) 650 mg PO Q6H PRN PRN Reason: Pain (mild 1-3) Escitalopram Oxalate (Lexapro) 10 mg PO DAILY [facility] Last Admin: 01/13/18 09:01 Dose: 10 mg Heparin Sodium (Porcine) (Heparin Sodium) 5,000 units SUBCUT Q12HR [facility] Last Admin: 01/13/18 08:59 Dose: 5,000 units Latanoprost (Xalatan 0.005% Ophth Soln) 0 ml EYEBOTH BEDTIME [facility] Last Admin: 01/12/18 20:05 Dose: 2 drop Metoclopramide HCl (Reglan) 10 mg PO BEDTIME [facility] Last Admin: 01/12/18 20:01 Dose: 10 mg Ondansetron HCl (Zofran Odt) 4 mg PO TIDAC [facility] Last Admin: 01/13/18 11:52 Dose: 4 mg Potassium Chloride (Klor-Con 10) 40 meq PO TID [facility] Last Admin: 01/13/18 09:00 Dose: 40 meq Rosuvastatin Calcium (Crestor) 20 mg PO BEDTIME [facility] Last Admin: 01/12/18 20:03 Dose: 20 mg Discontinued Medications Acetaminophen (Tylenol) 650 mg PO Q4H PRN PRN Reason: Pain (mild 1-3 )/fever Creon And Sodium Bicarb Non-Form Med 1 each GTUBE ONETIME ONE Stop: 01/07/18 16:31 Last Admin: 01/07/18 16:45 Dose: 1 each Ondansetron HCl (Zofran Odt) 8 mg PO Q8H PRN PRN Reason: Nausea Last Admin: 01/06/18 19:33 Dose: 8 mg Ondansetron HCl (Zofran) 4 mg IV Q8HR [facility] Potassium Chloride (Potassium Chloride Solution) 40 meq GTUBE TID [facility] Last Admin: 01/07/18 15:25 Dose: 40 meq Potassium Chloride (Potassium Chloride Solution) 40 meq PO TID [facility] Last Admin: 01/08/18 01:46 Dose: Not Given - Exam General: Alert, Oriented Neck: Supple Lungs: Clear to Auscultation, Normal Respiratory Effort Cardiovascular: Regular Rate, Regular Rhythm GI/Abdominal Exam: Normal Bowel Sounds, Soft, Non-Tender, Other (Feeding tube present) Extremities: No Pedal Edema - Problem List Review Problem List Initiated/Reviewed/Updated: Yes - My Orders Last 24 Hours: My Active Orders 01/12/18 21:00 Metoclopramide [Reglan] 10 mg PO BEDTIME - Plan Plan:: Jorge preciado 62 y.o.femalewith PMH of HTN and DM2 not on medications, hyperlipidemia, oligodendroglioma s/p resection and XRT, s/p adjuvant radiation therapy in [place] with her last treatment on 08/16/17. She is currently on adjuvant chemotherapy with Lomustine, Procarbazine and Vincristine which was started on 09/17/17. Last session about 6weeks ago. She was recently discharged to our swing bed after prolonged hospitalization for FTT, GJ tube placement, weakness, pancytopenia. Her GJ tube was not functioning at swing [facility] so was transferred back to [facility]. The tube was flushed, then aspirated - pill fragments were found and now function well. She was discharged back to our swing bed to continue PT/OT. Adult failure to thrive, poor appetite, generalized weakness, severe malnutrition -Patient encouraged to eat as tolerated, she is eating a little better now We will try to alternate days between tube feeding and oral food intake -nutrition, supplements -PT/OT Nausea/vomiting -Zofran and reglan as needed -improved G-J tube -strictly for tube feeding -do not use tube for pills, only tube feeds and liquid meds - pt is able to take her pills po Flash with fresh water frequently Acute on chronic anemia -stable Oligodendroglioma -follows with Dr Price HLD -cont statin Hypokalemia -Follow. Currently HTN -BP at goal -Continue current care -MonitoredBP closely PROPHYLAXIS: heparin DIET: general + tube feed CODE: DNR
[2018-01-13] MEDS: Rosuvastatin 10 MG Tab PO SCH (20:31)
[2018-01-13] MEDS: Metoclopramide Oral Soln 10 MG/10 ML UD Cup PO SCH (20:32)
[2018-01-13] MEDS: Latanoprost 0.005% Ophth Soln 2.5 ML Bottle EYEBOTH SCH (20:32)
[2018-01-13] MEDS ORDERED: Potassium Chloride 10 MEQ Tab.ER PO SCH (21:00)
[2018-01-14] MEDS: Ondansetron 4 MG Tab.DIS PO SCH ×3 (08:12→17:29)
[2018-01-14] MEDS: Heparin Sodium 5,000 Units/ML Vial SUBCUT SCH ×2 (11:04→20:25)
[2018-01-14] MEDS: Potassium Chloride 10 MEQ Tab.ER PO SCH ×2 (11:04→17:29)
[2018-01-14] MEDS: Escitalopram 10 MG Tab PO SCH (11:04)
[2018-01-14] MEDS: Latanoprost 0.005% Ophth Soln 2.5 ML Bottle EYEBOTH SCH (20:22)
[2018-01-14] MEDS: Metoclopramide Oral Soln 10 MG/10 ML UD Cup PO SCH (20:23)
[2018-01-14] MEDS: Rosuvastatin 10 MG Tab PO SCH (20:24)
[2018-01-15] MEDS: Potassium Chloride 10 MEQ Tab.ER PO SCH ×2 (08:16→17:05)
[2018-01-15] MEDS: Ondansetron 4 MG Tab.DIS PO SCH ×3 (08:17→17:05)
[2018-01-15] MEDS: Heparin Sodium 5,000 Units/ML Vial SUBCUT SCH ×2 (08:17→21:05)
[2018-01-15] MEDS: Escitalopram 10 MG Tab PO SCH (08:17)
[2018-01-15] MEDS: Latanoprost 0.005% Ophth Soln 2.5 ML Bottle EYEBOTH SCH (20:58)
[2018-01-15] MEDS: Metoclopramide Oral Soln 10 MG/10 ML UD Cup PO SCH (20:58)
[2018-01-15] MEDS: Rosuvastatin 10 MG Tab PO SCH (20:59)
[2018-01-16] MEDS: Ondansetron 4 MG Tab.DIS PO SCH ×3 (08:38→16:30)
[2018-01-16] MEDS: Potassium Chloride 10 MEQ Tab.ER PO SCH ×2 (09:21→18:03)
[2018-01-16] MEDS: Heparin Sodium 5,000 Units/ML Vial SUBCUT SCH ×2 (09:21→20:49)
[2018-01-16] MEDS: Escitalopram 10 MG Tab PO SCH (09:21)
[2018-01-16] MEDS: Rosuvastatin 10 MG Tab PO SCH (20:47)
[2018-01-16] MEDS: Metoclopramide Oral Soln 10 MG/10 ML UD Cup PO SCH (20:49)
[2018-01-16] MEDS: Latanoprost 0.005% Ophth Soln 2.5 ML Bottle EYEBOTH SCH (20:54)
[2018-01-17] MEDS: Heparin Sodium 5,000 Units/ML Vial SUBCUT SCH ×2 (10:33→20:54)
[2018-01-17] MEDS: Potassium Chloride 10 MEQ Tab.ER PO SCH (10:33)
[2018-01-17] MEDS: Ondansetron 4 MG Tab.DIS PO SCH ×3 (10:33→16:39)
[2018-01-17] MEDS: Escitalopram 10 MG Tab PO SCH (10:33)
[2018-01-17] MEDS: Metoclopramide Oral Soln 10 MG/10 ML UD Cup PO SCH (20:51)
[2018-01-17] MEDS: Rosuvastatin 10 MG Tab PO SCH (20:52)
[2018-01-17] MEDS: Latanoprost 0.005% Ophth Soln 2.5 ML Bottle EYEBOTH SCH (20:54)
[2018-01-18 07:02] LABS: CHLORIDE,CL 101 mmol/L (101-111); SODIUM,NA 136 mmol/L (135-145)
[2018-01-18] MEDS: Ondansetron 4 MG Tab.DIS PO SCH ×3 (08:46→17:04)
[2018-01-18] MEDS: Potassium Chloride 10 MEQ Tab.ER PO SCH (09:41)
[2018-01-18] MEDS: Escitalopram 10 MG Tab PO SCH (09:41)
[2018-01-18] MEDS: Heparin Sodium 5,000 Units/ML Vial SUBCUT SCH ×2 (09:42→22:59)
[2018-01-18] MEDS: Rosuvastatin 10 MG Tab PO SCH (22:59)
[2018-01-18] MEDS: Metoclopramide Oral Soln 10 MG/10 ML UD Cup PO SCH (22:59)
[2018-01-18] MEDS: Latanoprost 0.005% Ophth Soln 2.5 ML Bottle EYEBOTH SCH (23:00)
[2018-01-19] MEDS: Ondansetron 4 MG Tab.DIS PO SCH ×3 (08:04→17:28)
[2018-01-19] MEDS: Potassium Chloride 10 MEQ Tab.ER PO SCH (08:05)
[2018-01-19] MEDS: Escitalopram 10 MG Tab PO SCH (08:06)
[2018-01-19] MEDS: Heparin Sodium 5,000 Units/ML Vial SUBCUT SCH ×2 (08:07→21:57)
[2018-01-19] MEDS: Latanoprost 0.005% Ophth Soln 2.5 ML Bottle EYEBOTH SCH (21:57)
[2018-01-19] MEDS: Metoclopramide Oral Soln 10 MG/10 ML UD Cup PO SCH (21:58)
[2018-01-19] MEDS: Rosuvastatin 10 MG Tab PO SCH (21:58)
[2018-01-20] MEDS: Escitalopram 10 MG Tab PO SCH (09:12)
[2018-01-20] MEDS: Ondansetron 4 MG Tab.DIS PO SCH ×3 (09:12→17:42)
[2018-01-20] MEDS: Potassium Chloride 10 MEQ Tab.ER PO SCH (09:13)
[2018-01-20] MEDS: Heparin Sodium 5,000 Units/ML Vial SUBCUT SCH ×2 (09:14→20:44)
--- NOTE | 2018-01-20 12:37 | PN ---
DATE: 01/20/2018 SUBJECTIVE: Mrs. Isis Pratt is a 62-year-old female with medical history significant for hypertension, hyperlipidemia, type 2 diabetes mellitus, diagnosed with oligodendroglioma status post resection and radiation treatment. The patient had completed her adjuvant radiation therapy in the past and also received adjuvant chemotherapy and currently has a GJ tube and is currently under Swing Bed for continued tube feedings. For the last 24 hours, the patient continues to have poor oral intake. She was receiving 5 hours of tube feeds, but now since she has poor oral intake, we are going to increase tube feeds to 8 hours. She was encouraged to eat well, but the patient complains of not able to eat. Denies any chest pain. No shortness of breath. No abdominal pain. No nausea. No vomiting. No diarrhea. REVIEW OF SYSTEMS: Cardiovascular, respiratory, gastrointestinal, neurology, constitutional were all evaluated. PHYSICAL EXAMINATION: Vital Signs: Temperature of 97.9, pulse of 95, blood pressure 124/73, respiratory rate of 20, and saturating at 97% on room air. General Appearance: The patient is well oriented to time, place, and person. Follows commands spontaneously. Cardiovascular System: S1 and S2 heard with normal intensity. No gallops. Respiratory System: Clear to auscultation bilaterally. No wheeze. No crepitations. Abdomen: Soft. Bowel sounds positive. Nontender. No rigidity. Extremities: No edema in bilateral lower extremities. MEDICATIONS: Reviewed. Continue with: 1. Tylenol 650 every 4 hours as needed for pain. 2. Lexapro 10 mg daily. 3. Heparin 5000 subcutaneous q.12 hourly. 4. Reglan 10 mg at bedtime. 5. Potassium chloride 20 mEq daily. 6. Crestor 20 mg at bedtime. LABORATORY DATA: Labs from 01/18/2018: Sodium 136, potassium 4, chloride 101, bicarb 25, BUN 10, creatinine 0.7, and calcium 9.1. ASSESSMENT: 1. Oligodendroglioma, following with Dr. Price. 2. Status post gastrostomy-jejunostomy tube, secondary to poor oral intake with continued tube feeds. 3. Hypertension. 4. Type 2 diabetes mellitus. 5. Hyperlipidemia. PLAN: 1. Oligodendroglioma. The patient is scheduled to follow with Dr. Price in the cancer clinic at [facility] in [place] tomorrow. With basic labs, we will follow with Oncology recommendations. 2. Status post GJ tube. The patient has poor oral intake. She is unable to catch with her calorie counts. We will continue with the tube feeds. Dietitian consulted for monitoring the tube feeds. 3. Hypertension and diabetes. The patient is not on any antihypertensive medications at this time, but her blood pressure seems to be in acceptable range. 4. DVT prophylaxis. Continue with heparin for DVT prophylaxis. 5. Discussed with family members at bedside. [facility] /[id number]
[2018-01-20] MEDS: Rosuvastatin 10 MG Tab PO SCH (20:45)
[2018-01-20] MEDS: Metoclopramide Oral Soln 10 MG/10 ML UD Cup PO SCH (20:46)
[2018-01-20] MEDS: Latanoprost 0.005% Ophth Soln 2.5 ML Bottle EYEBOTH SCH (20:48)
[2018-01-21] MEDS: Ondansetron 4 MG Tab.DIS PO SCH ×3 (09:05→17:37)
[2018-01-21] MEDS: Heparin Sodium 5,000 Units/ML Vial SUBCUT SCH ×2 (09:05→20:21)
[2018-01-21] MEDS: Escitalopram 10 MG Tab PO SCH (09:06)
[2018-01-21] MEDS: Potassium Chloride 10 MEQ Tab.ER PO SCH (09:06)
[2018-01-21] MEDS: DEXAMETHASONE 4 MG PO SCH (17:53)
[2018-01-21] MEDS: Rosuvastatin 10 MG Tab PO SCH (20:20)
[2018-01-21] MEDS: Metoclopramide Oral Soln 10 MG/10 ML UD Cup PO SCH (20:21)
[2018-01-21] MEDS: Latanoprost 0.005% Ophth Soln 2.5 ML Bottle EYEBOTH SCH (20:22)
[2018-01-22] MEDS: Escitalopram 10 MG Tab PO SCH (09:26)
[2018-01-22] MEDS: Ondansetron 4 MG Tab.DIS PO SCH ×3 (09:26→17:53)
[2018-01-22] MEDS: DEXAMETHASONE 4 MG PO SCH ×2 (09:26→17:53)
[2018-01-22] MEDS: Potassium Chloride 10 MEQ Tab.ER PO SCH (09:26)
[2018-01-22] MEDS: Heparin Sodium 5,000 Units/ML Vial SUBCUT SCH ×2 (09:26→20:07)
[2018-01-22] MEDS: Rosuvastatin 10 MG Tab PO SCH (20:07)
[2018-01-22] MEDS: Metoclopramide Oral Soln 10 MG/10 ML UD Cup PO SCH (20:07)
[2018-01-22] MEDS: Latanoprost 0.005% Ophth Soln 2.5 ML Bottle EYEBOTH SCH (20:10)
[2018-01-23] MEDS: Ondansetron 4 MG Tab.DIS PO SCH ×3 (07:45→18:42)
[2018-01-23] MEDS: Heparin Sodium 5,000 Units/ML Vial SUBCUT SCH ×2 (09:18→21:00)
[2018-01-23] MEDS: Escitalopram 10 MG Tab PO SCH (09:18)
[2018-01-23] MEDS: Potassium Chloride 10 MEQ Tab.ER PO SCH (09:18)
[2018-01-23] MEDS: DEXAMETHASONE 4 MG PO SCH ×2 (09:47→18:47)
[2018-01-23] MEDS: Latanoprost 0.005% Ophth Soln 2.5 ML Bottle EYEBOTH SCH (21:01)
[2018-01-23] MEDS: Metoclopramide Oral Soln 10 MG/10 ML UD Cup PO SCH (21:02)
[2018-01-23] MEDS: Rosuvastatin 10 MG Tab PO SCH (21:02)
[2018-01-24] MEDS: Potassium Chloride 10 MEQ Tab.ER PO SCH (09:46)
[2018-01-24] MEDS: Ondansetron 4 MG Tab.DIS PO SCH ×3 (09:46→17:33)
[2018-01-24] MEDS: Escitalopram 10 MG Tab PO SCH (09:47)
[2018-01-24] MEDS: Heparin Sodium 5,000 Units/ML Vial SUBCUT SCH ×2 (09:47→20:32)
[2018-01-24] MEDS: DEXAMETHASONE 4 MG PO SCH ×2 (09:47→17:33)
[2018-01-24] MEDS: Metoclopramide Oral Soln 10 MG/10 ML UD Cup PO SCH (20:31)
[2018-01-24] MEDS: Latanoprost 0.005% Ophth Soln 2.5 ML Bottle EYEBOTH SCH (20:35)
[2018-01-24] MEDS: Rosuvastatin 10 MG Tab PO SCH (21:48)
[2018-01-25] MEDS: Potassium Chloride 10 MEQ Tab.ER PO SCH (08:26)
[2018-01-25] MEDS: Escitalopram 10 MG Tab PO SCH (08:26)
[2018-01-25] MEDS: Ondansetron 4 MG Tab.DIS PO SCH ×3 (08:26→16:47)
[2018-01-25] MEDS: Heparin Sodium 5,000 Units/ML Vial SUBCUT SCH ×2 (08:26→20:15)
[2018-01-25] MEDS: DEXAMETHASONE 4 MG PO SCH ×4 (08:26→18:33)
[2018-01-25] MEDS: Latanoprost 0.005% Ophth Soln 2.5 ML Bottle EYEBOTH SCH (20:15)
[2018-01-25] MEDS: Metoclopramide Oral Soln 10 MG/10 ML UD Cup PO SCH (20:17)
[2018-01-25] MEDS: Rosuvastatin 10 MG Tab PO SCH (20:17)
[2018-01-26] MEDS: Escitalopram 10 MG Tab PO SCH (08:51)
[2018-01-26] MEDS: DEXAMETHASONE 4 MG PO SCH ×2 (08:51→17:59)
[2018-01-26] MEDS: Potassium Chloride 10 MEQ Tab.ER PO SCH (08:51)
[2018-01-26] MEDS: Heparin Sodium 5,000 Units/ML Vial SUBCUT SCH ×2 (08:51→20:31)
[2018-01-26] MEDS: Ondansetron 4 MG Tab.DIS PO SCH ×3 (08:51→17:59)
[2018-01-26] MEDS ORDERED: Pantoprazole 40 MG Tab.CR PO ONE (09:52)
--- NOTE | 2018-01-26 11:12 | PCM.PN ---
- General Info Date of Service: 01/26/18 Admission Dx/Problem (Free Text): Weakness, Subjective Update: Jorge preciado 62 y.o.femalewith PMH of HTN and DM2 not on medications, hyperlipidemia, oligodendroglioma s/p resection and XRT, s/p adjuvant radiation therapy in [place] with her last treatment on 08/16/17. She is currently on adjuvant chemotherapy with Lomustine, Procarbazine and Vincristine which was started on 09/17/17. She was discharged to our swing bed after prolonged hospitalization for FTT, GJ tube placement, weakness, pancytopenia. Her GJ tube was not functioning at swing bed so was transferred back to [facility] on 2 occasion. The tube was flushed, then aspirated and now function well. She was discharged back to our swing bed to continue PT/OT and tube feeding. Goal s to d/c tube feeding if oral intake improves. Patient seen today on rounds. Overall she seems to be doing well. Her appetite is gradually improving and her oral intake is also improving. No nausea or vomiting overnight. Tube feeding modified to 10 hrs per day overnight. She denies abdominal pain, no chest pain, no shortness of breath. Functional Status: Reports: Pain Controlled - Review of Systems General: Reports: No Symptoms HEENT: Reports: No Symptoms Pulmonary: Reports: No Symptoms Cardiovascular: Reports: No Symptoms Gastrointestinal: Reports: No Symptoms Genitourinary: Reports: No Symptoms Musculoskeletal: Reports: No Symptoms Skin: Reports: No Symptoms Neurological: Reports: No Symptoms Psychiatric: Reports: No Symptoms - Patient Data Vitals - Most Recent: Last Vital Signs Temp 97.5 F 01/26/18 08:00 Pulse 72 01/26/18 08:00 Resp 18 01/26/18 08:00 BP 109/78 01/26/18 08:00 Pulse Ox 98 01/26/18 08:00 Weight - Most Recent: 117 lb 6.4 oz I&O - Last 24 Hours: Intake & Output 01/25/18 01/26/18 01/26/18 22:59 06:59 14:59 Intake Total 175 600 60 Balance 175 600 60 Med Orders - Current: Current Medications Acetaminophen (Tylenol) 650 mg PO Q6H PRN PRN Reason: Pain (mild 1-3) Dexamethasone (Dexamethasone) 4 mg PO BIDMEALS [facility] Last Admin: 01/26/18 08:51 Dose: 4 mg Escitalopram Oxalate (Lexapro) 10 mg PO DAILY [facility] Last Admin: 01/26/18 08:51 Dose: 10 mg Heparin Sodium (Porcine) (Heparin Sodium) 5,000 units SUBCUT Q12HR [facility] Last Admin: 01/26/18 08:51 Dose: 5,000 units Latanoprost (Xalatan 0.005% Ophth Soln) 0 ml EYEBOTH BEDTIME [facility] Last Admin: 01/25/18 20:15 Dose: 1 drop Metoclopramide HCl (Reglan) 10 mg PO BEDTIME [facility] Last Admin: 01/25/18 20:17 Dose: 10 mg Ondansetron HCl (Zofran Odt) 4 mg PO TIDAC [facility] Last Admin: 01/26/18 08:51 Dose: 4 mg Pantoprazole Sodium (Protonix) 40 mg PO ACBREAKFAST [facility] Potassium Chloride (Klor-Con 10) 20 meq PO DAILY [facility] Last Admin: 01/26/18 08:51 Dose: 20 meq Rosuvastatin Calcium (Crestor) 20 mg PO BEDTIME [facility] Last Admin: 01/25/18 20:17 Dose: 20 mg Senna/Docusate Sodium (Senna Plus) 1 tab PO BEDTIME PRN PRN Reason: Constipation Discontinued Medications Acetaminophen (Tylenol) 650 mg PO Q4H PRN PRN Reason: Pain (mild 1-3 )/fever Creon And Sodium Bicarb Non-Form Med 1 each GTUBE ONETIME ONE Stop: 01/07/18 16:31 Last Admin: 01/07/18 16:45 Dose: 1 each Ondansetron HCl (Zofran Odt) 8 mg PO Q8H PRN PRN Reason: Nausea Last Admin: 01/06/18 19:33 Dose: 8 mg Ondansetron HCl (Zofran) 4 mg IV Q8HR [facility] Pantoprazole Sodium (Protonix) 40 mg PO ONETIME ONE Stop: 01/26/18 09:53 Last Admin: 01/26/18 10:24 Dose: 40 mg Potassium Chloride (Potassium Chloride Solution) 40 meq GTUBE TID [facility] Last Admin: 01/07/18 15:25 Dose: 40 meq Potassium Chloride (Potassium Chloride Solution) 40 meq PO TID [facility] Last Admin: 01/08/18 01:46 Dose: Not Given Potassium Chloride (Klor-Con 10) 40 meq PO TID [facility] Last Admin: 01/13/18 09:00 Dose: 40 meq Potassium Chloride (Klor-Con 10) 40 meq PO BID [facility] Last Admin: 01/13/18 20:31 Dose: 40 meq Potassium Chloride (Klor-Con 10) 40 meq PO BID@0800,1800 [facility] Last Admin: 01/17/18 10:33 Dose: 40 meq - Exam Quality Assessment: DVT Prophylaxis General: Alert, Oriented HEENT: Pupils Equal, Pupils Reactive, EOMI, Mucous Membr. Moist/[place] Neck: Supple Lungs: Clear to Auscultation, Normal Respiratory Effort Cardiovascular: Regular Rate, Regular Rhythm GI/Abdominal Exam: Normal Bowel Sounds, Soft, Non-Tender, No Organomegaly, No Distention, No Abnormal Bruit, No Mass, Pelvis Stable (Female) Exam: Normal External Exam, Normal Speculum Exam, Normal Bimanual Exam Back Exam: Normal Inspection, Full Range of Motion Extremities: Normal Inspection, Normal Range of Motion, Non-Tender, No Pedal Edema, Normal Capillary Refill Skin: Warm, Dry, Intact Wound/Incisions: Healing Well Neurological: No New Focal Deficit Psy/Mental Status: Alert, Normal Affect, Normal Mood - Problem List & Annotations (1) Adult failure to thrive SNOMED Code(s): 356702041 Code(s): R62.7 - ADULT FAILURE TO THRIVE Status: Acute Current Visit: No (2) Nausea & vomiting SNOMED Code(s): 01166633 Code(s): R11.2 - NAUSEA WITH VOMITING, UNSPECIFIED Status: Acute Current Visit: No (3) Weakness generalized SNOMED Code(s): 25109884 Code(s): R53.1 - WEAKNESS Status: Acute Current Visit: No - Problem List Review Problem List Initiated/Reviewed/Updated: Yes - My Orders Last 24 Hours: My Active Orders 01/26/18 09:49 Docusate Sodium/Sennosides [Senna Plus] 1 tab PO BEDTIME PRN 01/27/18 06:00 Pantoprazole [ProTONIX] 40 mg PO ACBREAKFAST - Plan Plan:: Jorge ozzy 62 y.o.femalewith PMH of HTN and DM2 not on medications, hyperlipidemia, oligodendroglioma s/p resection and XRT, s/p adjuvant radiation therapy in [place] with her last treatment on 08/16/17. She is currently on adjuvant chemotherapy with Lomustine, Procarbazine and Vincristine which was started on 09/17/17. She was discharged to our swing bed after prolonged hospitalization for FTT, GJ tube placement, weakness, pancytopenia. Her GJ tube was not functioning at swing bed so was transferred back to [facility] on 2 occasion. The tube was flushed, then aspirated and now function well. She was discharged back to our swing bed to continue PT/OT and tube feeding. Goal s to d/c tube feeding if oral intake improves. Adult failure to thrive, poor appetite, generalized weakness, severe malnutrition -Patient encouraged to eat as tolerated. her oral intake is gradually improving. -Tube feeding now 10hrs per day overnight. -nutrition, supplements -PT/OT Nausea/vomiting -Zofran and reglan as needed -improved G-J tube -strictly for tube feeding -do not use tube for pills, only tube feeds and liquid meds - pt is able to take her pills po Flash with fresh water frequently Acute on chronic anemia -stable Oligodendroglioma -follows with Dr Price HLD -cont statin Hypokalemia -Follow. Currently HTN -BP at goal -Continue current care -MonitoredBP closely PROPHYLAXIS: heparin DIET: general + tube feed CODE: DNR
[2018-01-26] MEDS: Metoclopramide Oral Soln 10 MG/10 ML UD Cup PO SCH (20:16)
[2018-01-26] MEDS: Rosuvastatin 10 MG Tab PO SCH (20:16)
[2018-01-26] MEDS: Latanoprost 0.005% Ophth Soln 2.5 ML Bottle EYEBOTH SCH (20:17)
[2018-01-27] MEDS: Pantoprazole 40 MG Tab.CR PO SCH (06:39)
[2018-01-27] MEDS: Potassium Chloride 10 MEQ Tab.ER PO SCH (10:16)
[2018-01-27] MEDS: Heparin Sodium 5,000 Units/ML Vial SUBCUT SCH ×2 (10:17→20:29)
[2018-01-27] MEDS: Escitalopram 10 MG Tab PO SCH (10:17)
[2018-01-27] MEDS: Ondansetron 4 MG Tab.DIS PO SCH ×3 (10:17→17:59)
[2018-01-27] MEDS: DEXAMETHASONE 4 MG PO SCH ×2 (10:17→17:59)
[2018-01-27] MEDS: Rosuvastatin 10 MG Tab PO SCH (20:29)
[2018-01-27] MEDS: Metoclopramide Oral Soln 10 MG/10 ML UD Cup PO SCH (20:29)
[2018-01-27] MEDS: Latanoprost 0.005% Ophth Soln 2.5 ML Bottle EYEBOTH SCH (20:30)
[2018-01-28] MEDS: Pantoprazole 40 MG Tab.CR PO SCH (06:05)
[2018-01-28] MEDS: Escitalopram 10 MG Tab PO SCH (08:51)
[2018-01-28] MEDS: Ondansetron 4 MG Tab.DIS PO SCH ×3 (08:51→17:58)
[2018-01-28] MEDS: DEXAMETHASONE 4 MG PO SCH ×2 (08:51→17:58)
[2018-01-28] MEDS: Potassium Chloride 10 MEQ Tab.ER PO SCH (08:51)
[2018-01-28] MEDS: Heparin Sodium 5,000 Units/ML Vial SUBCUT SCH ×2 (08:52→20:24)
[2018-01-28] MEDS: Latanoprost 0.005% Ophth Soln 2.5 ML Bottle EYEBOTH SCH (20:24)
[2018-01-28] MEDS: Metoclopramide Oral Soln 10 MG/10 ML UD Cup PO SCH (20:25)
[2018-01-28] MEDS: Rosuvastatin 10 MG Tab PO SCH (20:25)
[2018-01-29] MEDS: Pantoprazole 40 MG Tab.CR PO SCH (05:57)
[2018-01-29] MEDS: Potassium Chloride 10 MEQ Tab.ER PO SCH (09:12)
[2018-01-29] MEDS: Ondansetron 4 MG Tab.DIS PO SCH ×3 (09:13→18:09)
[2018-01-29] MEDS: Heparin Sodium 5,000 Units/ML Vial SUBCUT SCH ×2 (09:13→20:51)
[2018-01-29] MEDS: Escitalopram 10 MG Tab PO SCH (09:13)
[2018-01-29] MEDS: DEXAMETHASONE 4 MG PO SCH ×2 (09:13→18:09)
[2018-01-29] MEDS: Rosuvastatin 10 MG Tab PO SCH (20:51)
[2018-01-29] MEDS: Metoclopramide Oral Soln 10 MG/10 ML UD Cup PO SCH (20:51)
[2018-01-29] MEDS: Latanoprost 0.005% Ophth Soln 2.5 ML Bottle EYEBOTH SCH (20:52)
[2018-01-30] MEDS: Pantoprazole 40 MG Tab.CR PO SCH (06:36)
[2018-01-30] MEDS: Ondansetron 4 MG Tab.DIS PO SCH ×3 (08:29→17:54)
[2018-01-30] MEDS: Escitalopram 10 MG Tab PO SCH (08:29)
[2018-01-30] MEDS: Potassium Chloride 10 MEQ Tab.ER PO SCH (08:30)
[2018-01-30] MEDS: Heparin Sodium 5,000 Units/ML Vial SUBCUT SCH ×2 (08:31→20:42)
[2018-01-30] MEDS: DEXAMETHASONE 4 MG PO SCH (08:36)
[2018-01-30] MEDS: Metoclopramide Oral Soln 10 MG/10 ML UD Cup PO SCH (20:41)
[2018-01-30] MEDS: Rosuvastatin 10 MG Tab PO SCH (20:41)
[2018-01-30] MEDS: Latanoprost 0.005% Ophth Soln 2.5 ML Bottle EYEBOTH SCH (20:42)
[2018-01-31] MEDS: Pantoprazole 40 MG Tab.CR PO SCH (05:00)
[2018-01-31] MEDS: Potassium Chloride 10 MEQ Tab.ER PO SCH (08:53)
[2018-01-31] MEDS: Ondansetron 4 MG Tab.DIS PO SCH ×3 (08:53→17:50)
[2018-01-31] MEDS: Escitalopram 10 MG Tab PO SCH (08:53)
[2018-01-31] MEDS: DEXAMETHASONE 4 MG PO SCH (08:55)
[2018-01-31] MEDS: Heparin Sodium 5,000 Units/ML Vial SUBCUT SCH ×2 (08:56→20:31)
[2018-01-31] MEDS: Metoclopramide Oral Soln 10 MG/10 ML UD Cup PO SCH (20:31)
[2018-01-31] MEDS: Latanoprost 0.005% Ophth Soln 2.5 ML Bottle EYEBOTH SCH (20:31)
[2018-01-31] MEDS: Rosuvastatin 10 MG Tab PO SCH (20:31)
[2018-02-01] MEDS: Pantoprazole 40 MG Tab.CR PO SCH (06:10)
[2018-02-01] MEDS: DEXAMETHASONE 4 MG PO SCH (08:22)
[2018-02-01] MEDS: Heparin Sodium 5,000 Units/ML Vial SUBCUT SCH ×2 (08:24→20:32)
[2018-02-01] MEDS: Escitalopram 10 MG Tab PO SCH (08:24)
[2018-02-01] MEDS: Ondansetron 4 MG Tab.DIS PO SCH ×3 (08:24→18:09)
[2018-02-01] MEDS: Potassium Chloride 10 MEQ Tab.ER PO SCH (08:24)
[2018-02-01] MEDS: Metoclopramide Oral Soln 10 MG/10 ML UD Cup PO SCH (20:31)
[2018-02-01] MEDS: Rosuvastatin 10 MG Tab PO SCH (20:31)
[2018-02-01] MEDS: Latanoprost 0.005% Ophth Soln 2.5 ML Bottle EYEBOTH SCH (20:36)
[2018-02-02] MEDS: Pantoprazole 40 MG Tab.CR PO SCH (05:44)
[2018-02-02] MEDS: Ondansetron 4 MG Tab.DIS PO SCH ×3 (07:51→18:15)
[2018-02-02] MEDS: Potassium Chloride 10 MEQ Tab.ER PO SCH (09:19)
[2018-02-02] MEDS: Escitalopram 10 MG Tab PO SCH (09:19)
[2018-02-02] MEDS: DEXAMETHASONE 4 MG PO SCH (09:19)
[2018-02-02] MEDS: Heparin Sodium 5,000 Units/ML Vial SUBCUT SCH ×2 (09:20→20:25)
[2018-02-02] MEDS: Metoclopramide Oral Soln 10 MG/10 ML UD Cup PO SCH (20:22)
[2018-02-02] MEDS: Rosuvastatin 10 MG Tab PO SCH (20:23)
[2018-02-02] MEDS: Latanoprost 0.005% Ophth Soln 2.5 ML Bottle EYEBOTH SCH (20:23)
[2018-02-03] MEDS: Pantoprazole 40 MG Tab.CR PO SCH (05:29)
[2018-02-03] MEDS: Ondansetron 4 MG Tab.DIS PO SCH ×3 (08:42→16:39)
[2018-02-03] MEDS: Heparin Sodium 5,000 Units/ML Vial SUBCUT SCH ×2 (08:43→20:41)
[2018-02-03] MEDS: Potassium Chloride 10 MEQ Tab.ER PO SCH (08:43)
[2018-02-03] MEDS: Escitalopram 10 MG Tab PO SCH (08:43)
[2018-02-03] MEDS: DEXAMETHASONE 4 MG PO SCH (08:43)
[2018-02-03] MEDS: Latanoprost 0.005% Ophth Soln 2.5 ML Bottle EYEBOTH SCH (20:32)
[2018-02-03] MEDS: Rosuvastatin 10 MG Tab PO SCH (20:32)
[2018-02-03] MEDS: Metoclopramide Oral Soln 10 MG/10 ML UD Cup PO SCH (20:32)
[2018-02-04] MEDS: Pantoprazole 40 MG Tab.CR PO SCH (05:25)
[2018-02-04] MEDS: Escitalopram 10 MG Tab PO SCH (08:30)
[2018-02-04] MEDS: Heparin Sodium 5,000 Units/ML Vial SUBCUT SCH ×2 (08:30→20:51)
[2018-02-04] MEDS: Potassium Chloride 10 MEQ Tab.ER PO SCH (08:30)
[2018-02-04] MEDS: Ondansetron 4 MG Tab.DIS PO SCH ×3 (08:30→17:18)
[2018-02-04] MEDS: DEXAMETHASONE 4 MG PO SCH (08:31)
--- NOTE | 2018-02-04 11:49 | PN ---
DATE: 02/04/2018 SUBJECTIVE: Mrs. Isis Pratt is a 62-year-old female with medical history significant for hypertension; hyperlipidemia; type 2 diabetes mellitus; and recently diagnosed with oligodendroglioma, status post resection and radiation treatment. The patient had completed her adjuvant radiation therapy in the past and also received adjuvant chemotherapy. The patient has currently a GJ tube and is currently on to Swing Bed for continued tube feedings and physical therapy. For the last 24 hours, the patient denies any complaints of chest pain. No shortness of breath. No abdominal pain. No nausea. No vomiting or diarrhea. She is tolerating the tube feeds well. REVIEW OF SYSTEMS: Cardiovascular, respiratory, gastrointestinal, neurology, constitutional were all evaluated. PHYSICAL EXAMINATION: Vital Signs: Temperature of 97.2, pulse of 69, blood pressure of 117/76, respiratory rate of 16, and saturating at 99% on room air. General Appearance: The patient is well oriented to time, place, and person. Follows commands spontaneously. Cardiovascular System: S1 and S2 heard with normal intensity. No gallops. Respiratory System: Clear to auscultation bilaterally. No wheeze. No crepitations. Abdomen: Soft. Bowel sounds positive. Nontender. No rigidity. Feeding tube in place. Extremities: No edema in bilateral lower extremities. MEDICATIONS: Medications reviewed. Continue with: 1. Dexamethasone 4 mg daily. 2. Lexapro 10 mg daily. 3. Heparin 5000 subcutaneous q.12 hourly. 4. Reglan 10 mg at bedtime. 5. Xalatan eye drops. 6. Zofran 4 mg 3 times a day. 7. Protonix 40 mg daily. 8. Potassium chloride 20 mEq daily. 9. Crestor 20 mg at bedtime. 10.Senokot 1 tablet as needed for constipation. LABORATORY DATA: No new labs ordered for today. ASSESSMENT: 1. Oligodendroglioma, received chemo and radiation treatment and resection of the tumor. 2. Chronic malnutrition, status post gastrojejunostomy tube placement, requiring tube feeds secondary to poor oral intake. 3. The patient requiring hysy-to-adh-bed to be elevated to 30 degrees, requiring hospital bed for home. 4. Hypertension. 5. Type 2 diabetes mellitus. 6. Hyperlipidemia. PLAN: 1. Oligodendroglioma. The patient had received her chemo and radiation therapy. She is following with Dr. Price. Recently decreased her dexamethasone to once-a-day dosing. She will continue to follow with Dr. Price as an outpatient. 2. Status post gastrojejunostomy tube. The patient was noted to have poor oral intake and malnutrition, requiring tube feeds. She is tolerating the tube feeds well at night. She will require a hospital bed to keep her head elevated to 30 degrees during tube feedings to avoid any complications with acid reflux, and she required a home hospital bed for home. 3. DVT prophylaxis. The patient is currently on heparin for DVT prophylaxis. 4. Hyperlipidemia. Continue with Crestor. 5. Hypertension. The patient is not on any antihypertensive medications. Her blood pressures are in acceptable range. [facility] /[id number]
[2018-02-04] MEDS: Latanoprost 0.005% Ophth Soln 2.5 ML Bottle EYEBOTH SCH (20:41)
[2018-02-04] MEDS: Rosuvastatin 10 MG Tab PO SCH (20:42)
[2018-02-04] MEDS: Metoclopramide Oral Soln 10 MG/10 ML UD Cup PO SCH (20:42)
[2018-02-05] MEDS: Pantoprazole 40 MG Tab.CR PO SCH (06:37)
[2018-02-05] MEDS: DEXAMETHASONE 4 MG PO SCH (08:53)
[2018-02-05] MEDS: Potassium Chloride 10 MEQ Tab.ER PO SCH (08:53)
[2018-02-05] MEDS: Heparin Sodium 5,000 Units/ML Vial SUBCUT SCH ×2 (08:53→21:15)
[2018-02-05] MEDS: Ondansetron 4 MG Tab.DIS PO SCH ×3 (08:53→18:17)
[2018-02-05] MEDS: Escitalopram 10 MG Tab PO SCH (08:53)
[2018-02-05] MEDS: Latanoprost 0.005% Ophth Soln 2.5 ML Bottle EYEBOTH SCH (21:13)
[2018-02-05] MEDS: Rosuvastatin 10 MG Tab PO SCH (21:15)
[2018-02-05] MEDS: Metoclopramide Oral Soln 10 MG/10 ML UD Cup PO SCH (21:15)
[2018-02-06] MEDS: Pantoprazole 40 MG Tab.CR PO SCH (06:28)
[2018-02-06] MEDS: Potassium Chloride 10 MEQ Tab.ER PO SCH (08:14)
[2018-02-06] MEDS: Ondansetron 4 MG Tab.DIS PO SCH ×2 (08:15→11:02)
[2018-02-06] MEDS: Escitalopram 10 MG Tab PO SCH (08:15)
[2018-02-06] MEDS: DEXAMETHASONE 4 MG PO SCH (08:16)
[2018-02-06] MEDS: Heparin Sodium 5,000 Units/ML Vial SUBCUT SCH (08:16)
--- NOTE | 2018-02-06 12:43 | DISCH ---
DATE OF SERVICE: 02/06/2018 DISCHARGE DIAGNOSES: 1. Generalized weakness, following prolonged hospitalization. 2. History of oligodendroglioma, status post resection, chemo and radiation therapy; completed on 08/16/2017. Continues on adjuvant chemotherapy. 3. Weight loss. 4. Supplemental tube feedings with recent malfunction of GJ tube, resolved. Feeds continue without problems. 5. Hypertension by history, but currently controlled, on no medications. Possibly related to significant weight loss and dietary changes. 6. Anemia, normocytic. 7. Type 2 diabetes, controlled. BRIEF HISTORY OF PRESENT ILLNESS: Mrs. Pratt is a 62-year-old lady with a history of oligodendroglioma. She underwent resection, radiation, and chemotherapy. She now continues on adjuvant chemotherapy. She is followed by Dr. Price. She has had significant weight loss and general decline. She has had some poor oral intake and resulting malnutrition, and a GJ tube was placed. Last month, she apparently had issues with the tube. It was found that the pills had been put through the feeding tube. This issue was resolved, and she now receives overnight feeds, and she is taking in oral nutrition, as well as all of her medications by mouth. The current tube is not to be used for pills, although some liquid medications are given. She was sent to [place] for resolution of the feeding tube issue, and upon return, has continued to work with Physical and Occupational Therapy for strengthening. PERTINENT LABORATORY AND X-RAY DATA: Labs were followed during this admission including CBC and basic panel. Her most recent labs on 01/12/2018 show hemoglobin and hematocrit of 10.8 and 33.7 which are stable. White count and platelets were unremarkable. Basic panel showed normal electrolytes, BUN and creatinine of 10 and 0.7 with a GFR of more than 60. Her blood sugars have been monitored during this admission, and for the most part, have been very well controlled; and almost all of her readings were under 150, and for the most part, lower than that. She has worked with Physical and Occupational Therapy, she has improved, and she is ready to be discharged to home. Review of her clinical data shows stable vital signs. Blood pressure is controlled off medications at this time. She is drinking adequate fluids. She is tolerating her diet, and appetite is fair. She is voiding and moving her bowels. She is tolerating her tube feeds. PHYSICAL EXAMINATION: General: She is lying comfortably in bed. She had gone out on a therapeutic leave today. She seemed tired. She is mildly confused and does not always track the conversation well. She denied any issues or complaints. Vital Signs: Blood pressure was 120/61, pulse 70, respiratory rate 18, oxygen saturation 99% on room air, and she is afebrile. Weight was 117 pounds. HEENT: Unremarkable. ENT was clear. Chest: Showed clear bilateral breath sounds. No wheezes or rales. Heart: Showed regular rate and rhythm. Abdomen: Soft and benign with active bowel sounds. Feeding tube was in place. The site was clean and dry. Extremities: Showed no edema. Neurological: Grossly intact but concentration and memory seem slightly impaired. DISCHARGE MEDICATIONS: 1. Rosuvastatin 20 mg at bedtime. 2. Potassium chloride 30 mL by the GJ tube t.i.d. 3. Ondansetron 8 mg ODT every 8 hours p.r.n. nausea and vomiting. 4. Lexapro 10 mg daily. 5. Tylenol 650 mg every 6 hours p.r.n. 6. Latanoprost 1 drop both eyes at bedtime. 7. Osmolite 1.5 at 50 ml/hr for 8 hours overnight. ALLERGIES: She has no known allergies. DISCHARGE INSTRUCTIONS: She has scheduled followup on 03/03/[address] Price. She will have lab work and a repeat MRI of the brain done prior to that visit. She also has followup with Linda Baptiste NP, on 03/18/2018 at 1:30 p.m. in the clinic. She will continue her usual medications. She will continue diet as tolerated. Activity as tolerated with full weightbearing. No strenuous activities. She will continue with tube feedings with Osmolite 1.5. This will run at 50 mL/hr for 8 hours overnight. She has water flushes of 100 mL 6 times a day. Aspiration precaution should be followed at all times. Her is renting a hospital bed. The head of the bed should be kept elevated at 30 to 45 degrees to reduce the risk of aspiration. CONDITION AT THE TIME OF DISCHARGE: Improved and stable. CODE STATUS DURING THIS ADMISSION: DNR/DNI. [facility] /[id number] [facility]
== END 2018-02-06 12:30 | disposition home or self-care (01) | DRG 947 ==
LOC: DL.MS 13:03 → UNDOADMIN 13:03 → DL.MS 15:37 → UNDODISIN 01-10 11:05
PROVIDERS: ADMIT Student in an Organized Health Care Education/Training Program; ATTEND Student in an Organized Health Care Education/Training Program
DX: R53.1 Weakness (principal); E43 Unspecified severe protein-calorie malnutrition; C71.9 Malignant neoplasm of brain, unspecified; D61.818 Other pancytopenia; Z68.20 Body mass index [BMI] 20.0-20.9, adult; I10 Essential (primary) hypertension; E11.9 Type 2 diabetes mellitus without complications; E78.5 Hyperlipidemia, unspecified; H40.9 Unspecified glaucoma; M19.90 Unspecified osteoarthritis, unspecified site; E87.6 Hypokalemia; R32 Unspecified urinary incontinence; D64.9 Anemia, unspecified; Z92.21 Personal history of antineoplastic chemotherapy; Z93.1 Gastrostomy status; Z79.899 Other long term (current) drug therapy; Z87.891 Personal history of nicotine dependence
CPT/HCPCS: 36415; 80048; 82962; 85025; 97110-GO; 97110-GP; 97116-GP; 97162-GP; 97165-GO; 97530-GO; A9270-GY; J1644; J8540

== ENCOUNTER 2018-02-23 07:03 | Emergency (ER) | payer OTHER ==
[2018-02-23] MEDS ORDERED: Lactulose Soln 10 GM/15 ML 30 ML UD Cup PO ONE ×2 (07:04→10:17)
--- NOTE | 2018-02-23 07:31 | EDM.PDOC ---
ED HPI GENERAL MEDICAL PROBLEM - General Chief Complaint: Neuro Symptoms/Deficits Stated Complaint: CONFUSSION, DIABETIC 280 Time Seen by Provider: 02/23/18 07:20 Source of Information: Reports: Patient, Family (), Old Records, RN, RN Notes Reviewed History Limitations: Reports: Altered Mental Status (confusion) - History of Present Illness INITIAL COMMENTS - FREE TEXT/NARRATIVE: Pt presents to ER from home by POV with reporting 3 days duration of increased confusion and constipation. Pt is s/p XRT and chemo for brain tumor. She was on G-tube feeding until 3 days ago, but has been eating very well per . Denies fever, chills, cough, headache, fall or injury, or any other Sx' s. Pt is unable to provide any history. Onset: Gradual Duration: Day(s): (3), Constant, Getting Worse Location: Reports: Generalized Severity: Moderate Improves with: Reports: None Worsens with: Reports: None Associated Symptoms: Reports: No Other Symptoms - Related Data Allergies Allergy/AdvReac Type Severity Reaction Status Date / Time No Known Allergies Allergy Verified 02/23/18 07:14 Home Meds: Home Meds Acetaminophen 650 mg PO Q6H PRN 01/01/18 [History] Latanoprost 1 drop EYEBOTH BEDTIME 01/01/18 [History] Ondansetron [Zofran Odt] 8 mg PO Q8H PRN 01/01/18 [History] Rosuvastatin [Crestor] 20 mg PO BEDTIME 01/01/18 [History] Escitalopram [Lexapro] 10 mg PO DAILY 01/05/18 [History] Potassium Chloride [Potassium Chloride Solution] 30 ml GTUBE TID 01/05/18 [ History] Past Medical History HEENT History: Reports: Glaucoma Cardiovascular History: Reports: Hypertension, Other (See Below) Other Cardiovascular History: Hyperlipidemia Gastrointestinal History: Reports: Other (See Below) Other Gastrointestinal History: gallbladder calculus without cholecystitis Genitourinary History: Reports: Urinary Incontinence Musculoskeletal History: Reports: Arthritis, Other (See Below) Other Musculoskeletal History: trigger thumb of right hand Neurological History: Reports: Other (See Below) Other Neuro History: Brain tumor Endocrine/Metabolic History: Reports: Diabetes, Type II, Other (See Below) ( Hyponatremia with confusion) Hematologic History: Reports: Blood Transfusion(s) Immunologic History: Reports: Immunosuppression Oncologic (Cancer) History: Reports: Brain - Past Surgical History Head Surgeries/Procedures: Reports: Other (See Below) HEENT Surgical History: Reports: Adenoidectomy, Tonsillectomy, Other (See Below) Other HEENT Surgeries/Procedures: wisdom teeth extraction Cardiovascular Surgical History: Reports: None GI Surgical History: Reports: Colonoscopy, Other (See Below) Other GI Surgeries/Procedures: G-tube placed 12/23/17 Female Surgical History: Reports: Tubal Ligation, Other (See Below) Other Female Surgeries/Procedures: left breast lumpectomy Endocrine Surgical History: Reports: None Neurological Surgical History: Reports: Other (See Below) Other Neurological Surgeries/Procedures: 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) Musculoskeletal Surgical History: Reports: None Oncologic Surgical History: Reports: Other (See Below) Other Oncologic Surgeries/Procedures: 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 ED EXAM, GENERAL - Physical Exam Exam: See Below Exam Limited By: Altered Mental Status (confusion) General Appearance: Alert, No Apparent Distress, Other (frail, chronically ill appearing) Eye Exam: Bilateral Eye: EOMI, Normal Inspection, PERRL Ears: Normal External Exam, Hearing Grossly Normal Nose: Normal Inspection, Normal Mucosa, No Blood Throat/Mouth: Normal Inspection, Normal Lips, Normal Oropharynx, Normal Voice, No Airway Compromise Head: Atraumatic, Normocephalic Neck: Normal Inspection, Supple, Non-Tender, Full Range of Motion Respiratory/Chest: No Respiratory Distress, Lungs Clear, No Accessory Muscle Use , Chest Non-Tender, Decreased Breath Sounds Cardiovascular: Regular Rate, Rhythm, No Edema GI/Abdominal: Normal Bowel Sounds, Soft, No Distention, Tender (mild tenderness to palp. at LUQ and LLQ). No: Guarding, Rigid, Rebound (Female) Exam: Deferred Rectal (Female) Exam: Deferred Extremities: Normal Inspection, Normal Range of Motion, Non-Tender Neurological: Alert, Oriented (to person and place only), No Motor/Sensory Deficits, Confused, Other (generalized weakness) Psychiatric: Normal Mood, Flat Affect Skin Exam: Warm, Dry, Intact, Normal Color, No Rash EKG INTERPRETATION EKG Date: 02/23/18 Time: 08:18 Rhythm: Other (SR) Rate (Beats/Min): 80 [place]: Normal P-Wave: Present (probable left atrial abnl.) QRS: Normal ST-T: Normal QT: Normal Comparison: NA - No Prior EKG Course - Vital Signs Last Recorded V/S: Last Vital Signs Temp 36.4 C 02/23/18 07:15 Pulse 85 02/23/18 07:15 Resp 16 02/23/18 07:15 BP 147/101 H 02/23/18 07:15 Pulse Ox 96 02/23/18 07:15 - Orders/Labs/Meds Orders: Active Orders 24 hr Category Date Time Status Blood Glucose Check, Bedside [] ONETIME Care 02/23/18 07:32 Active Blood Glucose Check, Bedside [] ONETIME Care 02/23/18 08:59 Active EKG 12 Lead [EKG Documentation Completion] [] STAT Care 02/23/18 07:31 Active Peripheral IV Care [] . DIRECTED Care 02/23/18 07:32 Active Abdomen 2V AP Upright Decub [CR] Urgent Exams 02/23/18 08:58 Taken Chest 1V Frontal [CR] Stat Exams 02/23/18 07:31 Taken DRUG SCREEN URINE BIORAD [URCHEM] Stat Lab 02/23/18 07:32 Ordered UA W/MICROSCOPIC [URIN] Stat Lab 02/23/18 07:32 Ordered Lactulose [Cephulac] Med 02/23/18 10:17 Once 20 gm PO ONETIME ONE Sodium Chloride 0.9% [Normal Saline] 1,000 ml Med 02/23/18 09:22 Active IV .BOLUS Sodium Chloride 0.9% [Saline Flush] Med 02/23/18 07:32 Active 10 ml FLUSH ASDIRECTED PRN Peripheral IV Insertion Adult [OM.PC] Stat Oth 02/23/18 07:31 Ordered Medication Orders Sodium Chloride (Normal Saline) 1,000 mls @ 999 mls/hr IV .BOLUS ONE Stop: 02/23/18 10:22 Last Admin: 02/23/18 09:27 Dose: 999 mls/hr Lactulose (Cephulac) 20 gm PO ONETIME ONE Stop: 02/23/18 10:18 Sodium Chloride (Saline Flush) 10 ml FLUSH ASDIRECTED PRN PRN Reason: Keep Vein Open Last Admin: 02/23/18 07:36 Dose: 10 ml Labs: Laboratory Tests 02/23/18 02/23/18 02/23/18 Range/Units 07:27 07:30 07:30 WBC 6.3 (5.0-10.0) 10^3/uL RBC 4.56 (4.2-5.4) 10^6/uL Hgb 13.8 D (12.0-16.0) g/dL Hct 42.0 (37.0-47.0) % MCV 92.1 (80-100) fL MCH 30.3 (27.0-34.0) pg MCHC 32.9 L (33.0-35.0) g/dL Plt Count 112 L D (150-450) 10^3/uL Neut % (Auto) 89.4 H (42.2-75.2) % Lymph % (Auto) 4.5 L (20.5-50.1) % [place] % (Auto) 5.1 (2-8) % Eos % (Auto) 0.0 L (1.0-3.0) % Baso % (Auto) 1.0 (0.0-1.0) % Sodium 133 L (135-145) mmol/L Potassium 4.5 (3.6-5.0) mmol/L Chloride 99 L (101-111) mmol/L Carbon Dioxide 21.0 (21.0-31.0) mmol/L Anion Gap 17.5 BUN 26 H (7-18) mg/dL Creatinine 0.6 (0.6-1.3) mg/dL Est Cr Clr Drug Dosing 75.97 mL/min Estimated GFR (MDRD) > 60 BUN/Creatinine Ratio 43.33 Glucose 345 H (74-105) mg/dL POC Glucose 285 H (70-105) mg/dl Lactic Acid (0.5-2.2) mmol/L Calcium 9.3 (8.4-10.2) mg/dl Magnesium 1.6 L (1.8-2.5) mg/dL Total Bilirubin 0.4 (0.2-1.0) mg/dL AST 24 (10-42) IU/L ALT 28 (10-60) IU/L Alkaline Phosphatase 66 (42-121) IU/L Total Protein 6.2 L (6.7-8.2) g/dl Albumin 3.4 (3.2-5.5) g/dl Globulin 2.8 Albumin/Globulin Ratio 1.21 Amylase 31 (28-100) U/L Lipase 20 L (22-51) U/L 02/23/18 02/23/18 Range/Units 08:33 09:31 WBC (5.0-10.0) 10^3/uL RBC (4.2-5.4) 10^6/uL Hgb (12.0-16.0) g/dL Hct (37.0-47.0) % MCV (80-100) fL MCH (27.0-34.0) pg MCHC (33.0-35.0) g/dL Plt Count (150-450) 10^3/uL Neut % (Auto) (42.2-75.2) % Lymph % (Auto) (20.5-50.1) % [place] % (Auto) (2-8) % Eos % (Auto) (1.0-3.0) % Baso % (Auto) (0.0-1.0) % Sodium (135-145) mmol/L Potassium (3.6-5.0) mmol/L Chloride (101-111) mmol/L Carbon Dioxide (21.0-31.0) mmol/L Anion Gap BUN (7-18) mg/dL Creatinine (0.6-1.3) mg/dL Est Cr Clr Drug Dosing mL/min Estimated GFR (MDRD) BUN/Creatinine Ratio Glucose (74-105) mg/dL POC Glucose 277 H (70-105) mg/dl Lactic Acid 2.4 H (0.5-2.2) mmol/L Calcium (8.4-10.2) mg/dl Magnesium (1.8-2.5) mg/dL Total Bilirubin (0.2-1.0) mg/dL AST (10-42) IU/L ALT (10-60) IU/L Alkaline Phosphatase (42-121) IU/L Total Protein (6.7-8.2) g/dl Albumin (3.2-5.5) g/dl Globulin Albumin/Globulin Ratio Amylase (28-100) U/L Lipase (22-51) U/L Meds: Medications Generic Name Dose Route Start Last Admin Trade Name Freq PRN Reason Stop Dose Admin Sodium Chloride 1,000 mls @ 999 mls/hr 02/23/18 09:22 02/23/18 09:27 Normal Saline IV 02/23/18 10:22 999 mls/hr .BOLUS ONE Administration Lactulose 20 gm 02/23/18 10:17 Cephulac PO 02/23/18 10:18 ONETIME ONE Sodium Chloride 10 ml 02/23/18 07:32 02/23/18 07:36 Saline Flush FLUSH 10 ml ASDIRECTED PRN Administration Keep Vein Open Discontinued Medications Generic Name Dose Route Start Last Admin Trade Name Freq PRN Reason Stop Dose Admin Insulin Human Regular 6 unit 02/23/18 08:59 02/23/18 09:00 Humulin R SUBCUT 02/23/18 09:00 6 units ONETIME ONE Administration - Radiology Interpretation Free Text/Narrative:: [facility] Final Radiology Report Call: [phone] assistance Online chat: [email or web address] Name: HEIDE HOLDER Age: 62Years F Date: 02/23/2018 SSN: -- : 1955 Study: XR CHEST 1 VIEW Requesting Physician: JULIANA REDMOND Images: 1 Addl Studies: Provided Clinical History: Contrast: Contrast Medium: Contrast Amount: Contrast Method: CONFIDENTIALITY STATEMENT This report is intended only for use by the referring physician, and only in accordance with law. If you received this in error, call [phone]. Page 1 of 1 EXAM: XR Chest, 1 View CLINICAL HISTORY: 62 years old, female; Cough. TECHNIQUE: Frontal view of the chest. COMPARISON: XR CHEST 11/06/2010 FINDINGS: Lungs: No lung consolidation or pulmonary edema. Pleural space: No pleural effusion or pneumothorax. Heart: The heart is not enlarged. Mediastinum: The mediastinal contours are normal. Bones/joints: No acute osseous abnormality. Tubes, lines and devices: There is a right jugular port present now with the catheter tip in superior vena cava. IMPRESSION: No acute abnormality. Thank you for allowing us to participate in the care of your patient. Dictated and Authenticated by: Jovan Martinez MD 02/23/2018 8:41 AM Central Time [facility] [place] [facility] Final Radiology Report Call: [phone] assistance Online chat: [email or web address] Name: HEIDE HOLDER Age: 62Years F Date: 02/23/2018 SSN: -- : 1955 Study: XR ABDOMEN 2 VIEWS Requesting Physician: JULIANA REDMOND Images: 2 Addl Studies: Provided Clinical History: Contrast: Contrast Medium: Contrast Amount: Contrast Method: CONFIDENTIALITY STATEMENT This report is intended only for use by the referring physician, and only in accordance with law. If you received this in error, call [phone]. Page 1 of 1 EXAM: XR Abdomen, 2 Views CLINICAL HISTORY: 62 years old, female; Constipation. TECHNIQUE: Frontal view of the abdomen/pelvis with upright view of the abdomen. COMPARISON: No relevant prior studies available. FINDINGS: Intraperitoneal space: No pneumoperitoneum. Gastrointestinal tract: No dilated gas-filled loops of bowel. No suspicious air- fluid levels. There is stool in the colon and rectum, but this is not subjectively out of the range of normal. Organs: Possible cholelithiasis. Gallbladder ultrasound would clarify. No radiopaque renal or ureteral calculi. Bones/joints: Right lateral disc space narrowing present at L4-L5. Tubes, lines and devices: There is a gastrojejunostomy tube present. IMPRESSION: 1. No bowel obstruction. The amount of stool in the colon/rectum is not subjectively out of the range of normal. 2. Possible cholelithiasis. Gallbladder ultrasound would clarify. Thank you for allowing us to participate in the care of your patient. Dictated and Authenticated by: Jovan Martinez MD 02/23/2018 9:43 AM Central Time Departure - Departure Time of Disposition: 10:19 Disposition: Home, Self-Care 01 Condition: Fair Clinical Impression: Confusion with nonfocal neurological examination, History of brain tumor Constipation Qualifiers: Constipation type: other constipation type Qualified Code(s): K59.09 - Other constipation - Discharge Information Instructions: Constipation, Adult, Confusion Referrals: Linda Baptiste NP [Primary Care Provider] - Forms: ED Department Discharge Additional Instructions: Restart Metformin as previously prescribed (one tablet twice a day). Use prunes and/or prune juice to help prevent constipation. Follow up in clinic in Friday, Feb.25 as scheduled. Return to ER if worse at any time. - My Orders Last 24 Hours: My Active Orders 02/23/18 07:31 EKG 12 Lead [EKG Documentation Completion] [RC] STAT Chest 1V Frontal [CR] Stat Peripheral IV Insertion Adult [OM.PC] Stat 02/23/18 07:32 Blood Glucose Check, Bedside [RC] ONETIME Peripheral IV Care [RC] . DIRECTED DRUG SCREEN URINE BIORAD [URCHEM] Stat UA W/MICROSCOPIC [URIN] Stat Sodium Chloride 0.9% [Saline Flush] 10 ml FLUSH ASDIRECTED PRN 02/23/18 08:58 Abdomen 2V AP Upright Decub [CR] Urgent 02/23/18 08:59 Blood Glucose Check, Bedside [RC] ONETIME 02/23/18 09:22 Sodium Chloride 0.9% [Normal Saline] 1,000 ml IV .BOLUS 02/23/18 10:17 Lactulose [Cephulac] 20 gm PO ONETIME ONE - Assessment/Plan Last 24 Hours: My Active Orders 02/23/18 07:31 EKG 12 Lead [EKG Documentation Completion] [RC] STAT Chest 1V Frontal [CR] Stat Peripheral IV Insertion Adult [OM.PC] Stat 02/23/18 07:32 Blood Glucose Check, Bedside [RC] ONETIME Peripheral IV Care [RC] . DIRECTED DRUG SCREEN URINE BIORAD [URCHEM] Stat UA W/MICROSCOPIC [URIN] Stat Sodium Chloride 0.9% [Saline Flush] 10 ml FLUSH ASDIRECTED PRN 02/23/18 08:58 Abdomen 2V AP Upright Decub [CR] Urgent 02/23/18 08:59 Blood Glucose Check, Bedside [RC] ONETIME 02/23/18 09:22 Sodium Chloride 0.9% [Normal Saline] 1,000 ml IV .BOLUS 02/23/18 10:17 Lactulose [Cephulac] 20 gm PO ONETIME ONE
[2018-02-23] MEDS ORDERED: Sodium Chloride 0.9% 10 ML Syringe FLUSH PRN (07:32)
[2018-02-23 08:01] LABS: ANION GAP 17.5; CHLORIDE,CL 99 mmol/L (101-111); SODIUM,NA 133 mmol/L (135-145)
[2018-02-23] MEDS ORDERED: Insulin Regular, Human 100 Units/ML 3 ML Vial SUBCUT ONE (08:59)
[2018-02-23] MEDS ORDERED: Sodium Chloride 0.9% 1,000 ML IV ONE (09:22)
[2018-02-23] MEDS ORDERED: Lactulose Soln 10 GM/15 ML 30 ML UD Cup ONE (10:18)
== END 2018-02-23 10:59 | disposition home or self-care (01) ==
LOC: DL.ED 07:03
DX: K59.09 Other constipation (principal); R41.0 Disorientation, unspecified; E11.9 Type 2 diabetes mellitus without complications; C71.9 Malignant neoplasm of brain, unspecified; I10 Essential (primary) hypertension; Z79.899 Other long term (current) drug therapy
CPT/HCPCS: 36415; 71045; 74021; 80053; 80305; 81001; 82150; 82962; 83605; 83690; 83735; 85025; 93005; 93010; 96360; 96372; 99285; J1815; J7030; J7050; A9270-GY